=== PATIENT | female | born 1970 | race Caucasian/White ===

== ENCOUNTER 2018-05-20 07:49 | Emergency (ER) | payer MEDICAID ==
[2018-05-20] MEDS ORDERED: Ketorolac 60 MG/2 ML SDV IM ONE (08:16)
--- NOTE | 2018-05-20 08:23 | EDM.PDOC ---
ED HPI GENERAL MEDICAL PROBLEM - General Chief Complaint: Lower Extremity Injury/Pain Stated Complaint: SWOLLEN AND PAINFUL LEFT FOOT Time Seen by Provider: 05/20/18 08:05 - History of Present Illness INITIAL COMMENTS - FREE TEXT/NARRATIVE: HISTORY AND PHYSICAL: History of present illness: The patient is a 48-year-old female with a history of a bilateral tubal ligation presents with complaints of pain to her anterior ankle and dorsal aspect of her proximal foot that started last night after she twisted it going down the stairs to her laundry. She said that she rolled it and she fell to the ground but she did not pass out or blackout and she has no head neck or back pain. She said initially there was some pain there but she thought it would just go away and she took one dose of ibuprofen last night. This morning she woke up and it's very painful to ambulate. She has no neurosensory changes in the foot and the toes are not tender nor is the proximal tib-fib knee thigh or hip. The patient says she is up-to-date on her tetanus shot. Patient noticed a small wound on the anterior aspect of her ankle but she is not concerned about that and is not tender in the soft tissue. Review of systems: As per history of present illness and below otherwise all systems reviewed and negative. Past medical history: As per history of present illness and as reviewed below otherwise noncontributory. Surgical history: As per history of present illness and as reviewed below otherwise noncontributory. Social history: No reported history of drug or alcohol abuse. Family history: As per history of present illness and as reviewed below otherwise noncontributory. Physical exam: General: Well-developed well-nourished female who is nontoxic and vital signs are noted by me HEENT: Atraumatic, normocephalic, there is no palpable scalp bony deformities or tenderness and there are no midline step-offs tenderness defects of the cervical spine negative for conjunctival pallor or scleral icterus, mucous membranes moist, throat clear, neck supple, nontender, trachea midline. Lungs: Clear to auscultation, breath sounds equal bilaterally, chest nontender. Heart: S1S2, regular rate and rhythm no overt murmurs Abdomen: Soft, nondistended, nontender. NABS Pelvis: Stable nontender. No lateral hip tenderness on the left Genitourinary: Deferred. Rectal: Deferred. Extremities: Atraumatic full range of motion of all extremities with the exception of the left ankle and foot. At the dorsal aspect of the anterior soft tissue near the junction of the ankle and foot there is a quarter-sized scab- like area seen which has no surrounding erythema and there is no drainage or tenderness. That entire area has diffuse ill-defined soft tissue swelling extending into the proximal aspect of the dorsal foot. There is no discrete medial or lateral ankle tenderness no metatarsal tenderness or toe tenderness or defects and no proximal tib-fib knee or hip tenderness or defects. The legs are, negative for cords or calf pain. Neurovascular unremarkable. The patient indicates the area of the dorsal and slightly lateral foot in the proximal aspect as the site of pain. Pulses are intact and temperature and Refill are normal. Neuro: Awake, alert, oriented. Cranial nerves II through XII unremarkable. Cerebellum unremarkable. Motor and sensory unremarkable throughout. Exam nonfocal. Back: There are no midline step-offs tenderness defects of the thoracic or lumbar spine and no posterior rib or pelvis tenderness. Diagnostics: X-ray left ankle and foot Therapeutics: Toradol She defers wound care cam boot and crutches Impression: Left ankle/foot injury, sprain Definitive disposition and diagnosis as appropriate pending reevaluation and review of above. Left Ankle Pain Score (Numeric/FACES): 8 - Related Data Allergies Allergy/AdvReac Type Severity Reaction Status Date / Time No Known Allergies Allergy Verified 05/20/18 08:10 Home Meds: Home Meds ALPRAZolam [Xanax] 0.5 mg PRN 05/20/18 [History] QUEtiapine Fumarate [Seroquel] 50 mg PRN 05/20/18 [History] Review of Systems - Review of Systems Review Of Systems: ROS reveals no pertinent complaints other than HPI. ED EXAM, GENERAL - Physical Exam Exam: See Below (See dictation) Course - Vital Signs Last Recorded V/S: Last Vital Signs Temp 36.0 C 05/20/18 08:05 Pulse 75 05/20/18 08:05 Resp 18 05/20/18 08:05 BP 125/65 05/20/18 08:05 Pulse Ox 97 05/20/18 08:05 - Orders/Labs/Meds Orders: Active Orders 24 hr Category Date Time Status DME for Discharge [COMM] Stat Oth 05/20/18 09:19 Ordered Meds: Medications Discontinued Medications Generic Name Dose Route Start Last Admin Trade Name Wade PRN Reason Stop Dose Admin Ketorolac Tromethamine 60 mg 05/20/18 08:16 05/20/18 08:25 Toradol IM 05/20/18 08:17 60 mg ONETIME ONE Administration Departure - Departure Time of Disposition: 09:19 Disposition: Home, Self-Care 01 Condition: Good Clinical Impression: Injury of left foot Qualifiers: Encounter type: initial encounter Qualified Code(s): S99.922A - Unspecified injury of left foot, initial encounter Left ankle injury Qualifiers: Encounter type: initial encounter Qualified Code(s): S99.912A - Unspecified injury of left ankle, initial encounter - Discharge Information Referrals: PCP,None [Primary Care Provider] - Forms: ED Department Discharge Additional Instructions: The following information is given to patients seen in the emergency department who are being discharged to home. This information is to outline your options for follow-up care. We provide all patients seen in our emergency department with a follow-up referral. The need for follow-up, as well as the timing and circumstances, are variable depending upon the specifics of your emergency department visit. If you don't have a primary care physician on staff, we will provide you with a referral. We always advise you to contact your personal physician following an emergency department visit to inform them of the circumstance of the visit and for follow-up with them and/or the need for any referrals to a consulting specialist. The emergency department will also refer you to a specialist when appropriate. This referral assures that you have the opportunity for followup care with a specialist. All of these measure are taken in an effort to provide you with optimal care, which includes your followup. Under all circumstances we always encourage you to contact your private physician who remains a resource for coordinating your care. When calling for followup care, please make the office aware that this follow-up is from your recent emergency room visit. If for any reason you are refused follow-up, please contact the emergency department at and ask to speak to the emergency department charge nurse. [facility]--Orthopedic clinic Professional [address] [address] Ice and elevate the area as much as possible and wear the boot you have been given and try not to weight-bear and use crutches until you are followed up in the clinic. Please use [id number] ibuprofen or Tylenol for pain. Please call and schedule a follow-up appointment in our clinic as we discussed using resources given to above and return to ER as needed and as discussed. You may use a stronger medications you have been prescribed and take only at home. - My Orders Last 24 Hours: My Active Orders 05/20/18 09:19 DME for Discharge [COMM] Stat - Assessment/Plan Last 24 Hours: My Active Orders 05/20/18 09:19 DME for Discharge [COMM] Stat
--- NOTE | 2018-05-20 09:16 | CR ---
EXAMINATION: Left foot and left ankle HISTORY: Trauma COMPARISON: None TECHNIQUE: 3 views of the left foot and 3 views of left ankle FINDINGS: There is no acute osseous abnormality, dislocation, or fracture. Bone mineralization and alan int spaces are preserved. Mild degenerative changes noted within the midfoot. Ankle mortise and talar dome are preserved. No focal soft tissue swelling. IMPRESSION: No acute osseous abnormality identified.
== END 2018-05-20 09:30 | disposition home or self-care (01) ==
LOC: MW.ED 07:49
DX: S93.402A Sprain of unspecified ligament of left ankle, initial encounter (principal); S93.602A Unspecified sprain of left foot, initial encounter; W10.9XXA Fall (on) (from) unspecified stairs and steps, initial encounter
CPT/HCPCS: 73610; 73630; 96372; 99283; J1885

== ENCOUNTER 2018-12-15 15:26 | Emergency (ER) | payer MEDICAID ==
[2018-12-15] MEDS ORDERED: Ketorolac 60 MG/2 ML SDV IM ONE (15:50)
--- NOTE | 2018-12-15 15:51 | EDM.PDOC ---
<Adeline Lawrence - Last Filed: 12/15/18 18:05> ED HPI GENERAL MEDICAL PROBLEM - General Chief Complaint: Back Pain or Injury Stated Complaint: BACK PAIN Time Seen by Provider: 12/15/18 15:36 - History of Present Illness INITIAL COMMENTS - FREE TEXT/NARRATIVE: Plan: 1. Take medications as prescribed 2. Follow-up with your primary care provider as discussed. 3. Return to the ED as needed as discussed. - Related Data Allergies Allergy/AdvReac Type Severity Reaction Status Date / Time No Known Allergies Allergy Verified 12/15/18 15:40 Home Meds: Home Meds ALPRAZolam [Xanax] 0.5 mg PO ASDIRECTED PRN 05/20/18 [History] Sertraline [Zoloft] 12/15/18 [History] Course - Vital Signs Last Recorded V/S: Last Vital Signs Temp 98.1 F 12/15/18 15:36 Pulse 83 12/15/18 18:20 Resp 16 12/15/18 18:20 BP 119/81 12/15/18 18:20 Pulse Ox 96 12/15/18 18:20 - Orders/Labs/Meds Labs: Laboratory Tests 12/15/18 Range/Units 17:37 Urine Color YELLOW Urine Appearance CLEAR Urine pH 5.5 (5.0-8.0) Ur Specific Union 1.020 (1.001-1.035) Urine Protein NEGATIVE (NEGATIVE) mg/dL Urine Glucose (UA) NEGATIVE (NEGATIVE) mg/dL Urine Ketones NEGATIVE (NEGATIVE) mg/dL Urine Occult Blood NEGATIVE (NEGATIVE) Urine Nitrite NEGATIVE (NEGATIVE) Urine Bilirubin NEGATIVE (NEGATIVE) Urine Urobilinogen 0.2 (<2.0) EU/dL Ur Leukocyte Esterase NEGATIVE (NEGATIVE) Meds: Medications Discontinued Medications Generic Name Dose Route Start Last Admin Trade Name Freq PRN Reason Stop Dose Admin Hydrocodone Bitart/Acetaminophen 1 tab 12/15/18 17:47 12/15/18 17:51 Orient 325-5 Mg PO 12/15/18 17:48 1 tab ONETIME ONE Administration Ketorolac Tromethamine 60 mg 12/15/18 15:50 12/15/18 16:21 Toradol IM 12/15/18 15:51 60 mg ONETIME ONE Administration Morphine Sulfate 4 mg 12/15/18 17:30 12/15/18 17:52 Morphine PO 12/15/18 17:31 Not Given ONETIME ONE Orphenadrine Citrate 60 mg 12/15/18 15:50 12/15/18 16:21 Norflex IM 12/15/18 15:51 60 mg NOW STA Administration Departure - Departure Time of Disposition: 18:05 Disposition: Home, Self-Care 01 Clinical Impression: Low back pain Qualifiers: Chronicity: acute Back pain laterality: left Sciatica presence: with sciatica Sciatica laterality: sciatica of left side Qualified Code(s): M54.42 - Lumbago with sciatica, left side - Discharge Information Instructions: Back Pain, Adult, Back Pain, Adult, [id number] Referrals: PCP,None [Primary Care Provider] - Forms: ED Department Discharge Additional Instructions: The following information is given to patients seen in the emergency department who are being discharged to home. This information is to outline your options for follow-up care. We provide all patients seen in our emergency department with a follow-up referral. The need for follow-up, as well as the timing and circumstances, are variable depending upon the specifics of your emergency department visit. If you don't have a primary care physician on staff, we will provide you with a referral. We always advise you to contact your personal physician following an emergency department visit to inform them of the circumstance of the visit and for follow-up with them and/or the need for any referrals to a consulting specialist. The emergency department will also refer you to a specialist when appropriate. This referral assures that you have the opportunity for follow-up care with a specialist. All of these measure are taken in an effort to provide you with optimal care, which includes your follow-up. Under all circumstances we always encourage you to contact your private physician who remains a resource for coordinating your care. When calling for follow-up care, please make the office aware that this follow-up is from your recent emergency room visit. If for any reason you are refused follow-up, please contact the [facility] Emergency Department at and asked to speak to the emergency department charge nurse. [facility] [address] [place] [id number] [facility] [address] [place] [address] 1. Take medications as prescribed 2. Follow-up with your primary care provider as discussed. 3. Return to the ED as needed as discussed. <Phylicia Ch E - Last Filed: 12/16/18 14:04> ED HPI GENERAL MEDICAL PROBLEM - General Source of Information: Reports: Patient History Limitations: Reports: No Limitations - History of Present Illness INITIAL COMMENTS - FREE TEXT/NARRATIVE: HISTORY AND PHYSICAL: History of present illness: Patient is a 48-year-old female presents to the ED today with concerns for low back pain that radiates down the left leg. Patient rates her pain a 10 out of 10 and states that she has never had back pain hurt this bad. She denies injury to the area and states it is progressively gotten worse over the past 2 weeks. Patient states the pain is more left-sided abdominal low back and she can feel it on the outside of her left leg. She describes the pain as shooting and numb. I saddle anesthesia, loss of bowel or bladder function. Patient denies fever, chills, chest pain, shortness of breath, or cough. Denies headache, neck stiff ness, change in vision, syncope, or near syncope. She denies nausea, vomiting, abdominal pain, diarrhea, constipation, or dysuria. Has not noted any blood in urine or stool. Patient has been eating and drinking appropriately. Review of systems: As per history of present illness and below otherwise all systems reviewed and negative. Past medical history: As per history of present illness and as reviewed below otherwise noncontributory. Surgical history: As per history of present illness and as reviewed below otherwise noncontributory. Social history: See social history for further information Family history: As per history of present illness and as reviewed below otherwise noncontributory. Physical exam: General: Patient is alert, oriented, and in no acute distress. She is laying comfortably on exam table. HEENT: Atraumatic, normocephalic, pupils equal and reactive bilaterally, negative for conjunctival pallor or scleral icterus, mucous membranes moist, TMs normal bilaterally, throat clear, neck supple, nontender, trachea midline. No drooling or trismus noted. No meningeal signs. No hot potato voice noted. Lungs: Clear to auscultation, breath sounds equal bilaterally, chest nontender. Heart: S1S2, regular rate and rhythm without overt murmur Abdomen: Soft, nondistended, nontender. Negative for masses or hepatosplenomegaly. Negative for costovertebral tenderness. Pelvis: Stable nontender. Genitourinary: Deferred. Rectal: Deferred. Skin: Intact, warm, dry. No lesions or rashes noted. Extremities/musculoskeletal: There are no step-offs or obvious deformities of the spine. Patient does have moderate to severe pain with range of motion of the lumbar spine. She does have pain to palpation of the generalized lumbar spine and surrounding musculature. Dorsalis pedis and posterior tibial pulses are grossly intact bilaterally. Patient has full range of motion of hips knees and ankles and toes bilaterally. No edema noted. Atraumatic, negative for cords or calf pain. Neurovascular unremarkable. Neuro: Awake, alert, oriented. Cranial nerves II through XII unremarkable. Cerebellum unremarkable. Motor and sensory unremarkable throughout. Exam nonfocal. Notes: ALEXEI Casanova has assumed care of this patient will follow remaining diagnostics and disposition. Diagnostics: Lumbar CT Therapeutics: Toradol, Norflex Impression: Low back pain, unspecified Definitive disposition and diagnosis as appropriate pending reevaluation and review of above. 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: Reports: Psychiatric History: Reports: Anxiety, PTSD - Infectious Disease History Infectious Disease History: Reports: Chicken Pox - Past Surgical History HEENT Surgical History: Reports: Naso-Sinus Surgery Female Surgical History: Reports: Section, Tubal Ligation Social & Family History - Family History Family Medical History: Noncontributory - Tobacco Use Smoking Status *Q: Current Every Day Smoker Years of Tobacco use: 30 Packs/Tins Daily: 0.2 - Recreational Drug Use Recreational Drug Use: No ED ROS GENERAL - Review of Systems Review Of Systems: ROS reveals no pertinent complaints other than HPI. ED EXAM,LOWER BACK PAIN/INJURY - Physical Exam Exam: See Below (see dictation) Course - Orders/Labs/Meds Labs: Laboratory Tests 12/15/18 Range/Units 17:37 Urine Color YELLOW Urine Appearance CLEAR Urine pH 5.5 (5.0-8.0) Ur Specific Union 1.020 (1.001-1.035) Urine Protein NEGATIVE (NEGATIVE) mg/dL Urine Glucose (UA) NEGATIVE (NEGATIVE) mg/dL Urine Ketones NEGATIVE (NEGATIVE) mg/dL Urine Occult Blood NEGATIVE (NEGATIVE) Urine Nitrite NEGATIVE (NEGATIVE) Urine Bilirubin NEGATIVE (NEGATIVE) Urine Urobilinogen 0.2 (<2.0) EU/dL Ur Leukocyte Esterase NEGATIVE (NEGATIVE)
[2018-12-15] MEDS ORDERED: Morphine 4 MG/ML Syringe PO ONE (17:30)
--- NOTE | 2018-12-15 17:32 | CT ---
INDICATION: Back pain TECHNIQUE: CT lumbar spine without contrast. COMPARISON: None available FINDINGS: The lumbar spine alignment is within normal limits. The vertebral body heights are preserved without a compression deformity. The facets are anatomically aligned. There is no evidence of an acute lumbar spine fracture. There are mild degenerative changes in the lower lumbar spine facet joints. There is a small disk bulge/broad-based protrusion at L5-S1 with a small osteophyte formation off of the superior aspect of the S1 segment. There are small sacral Tarlov cysts. There is a partially imaged ovoid low-attenuation area/structure in the posteromedial aspect of the left piriformis muscle, seen on images 280 - 289 of series 201, which could be related to the left S3 nerve. There is reactive sclerosis adjacent to the anterior aspect of the sacroiliac joints. IMPRESSION: No evidence of an acute lumbar spine fracture. Mild degenerative changes in the lower lumbar spine. A partially imaged ovoid low-attenuation area/structure at the posteromedial aspect of the left piriformis muscle, which could be related to the left S3 nerve. Recommend followup evaluation with MRI of the sacrum and pelvis. Dictated by Wilmer Sal MD @ 12/15/2018 5:29:58 PM Please note that all CT scans at this facility use dose modulation, iterative reconstruction, and/or weight-based dosing when appropriate to reduce radiation dose to as low as reasonably achievable. Dictated by: Wilmer Sal MD @ 12/15/2018 17:31:19 (Electronically Signed)
[2018-12-15] MEDS ORDERED: Acetaminophen/HYDROcodone 325-5 MG Tab PO ONE (17:47)
== END 2018-12-15 18:19 | disposition home or self-care (01) ==
LOC: MW.ED 15:26
DX: M54.42 Lumbago with sciatica, left side (principal); F17.210 Nicotine dependence, cigarettes, uncomplicated
CPT/HCPCS: 72131; 81003; 96372; 99284; A9270; J1885; J2360

== ENCOUNTER → 2019-07-26 | Day surgery (SDC) | payer BC ==
[~2019-07-26] MED LIST: Lactated Ringers 1,000 ML IV SCH
[2019-07-26 15:54] LABS: BLOOD UREA NITROGEN,BUN 10 mg/dL (7.0-18.0); CARBON DIOXIDE,CO2 25.7 mmol/L (21.0-32.0); CHLORIDE,CL 106 mmol/L (98-107); GLUCOSE RANDOM 97 mg/dL (74-106); POTASSIUM,K 4.2 mmol/L (3.5-5.1); SODIUM,NA 144 mmol/L (136-145)
== END ==
LOC: MW.SDS 14:36
PROVIDERS: ATTEND Obstetrics & Gynecology
DX: R32 Unspecified urinary incontinence (principal)
CPT/HCPCS: 36415; 80053; 80074; 82607; 82728; 82746; 83550; 85027; 85384; 85610; 85730; 86850; 86900; 86901

== ENCOUNTER 2020-02-24 12:12 | Day surgery (SDC) | payer BC ==
[2020-02-24] MEDS ORDERED: Betamethasone Acetate/Betamethasone Sod Phosphate 30 MG/5 ML MDV EPIDUR ONE (13:00)
[2020-02-24] MEDS ORDERED: Lidocaine 2% 5 ML SDV INJECT ONE (13:00)
[2020-02-24] MEDS ORDERED: Iopamidol 200-M 10 ML vial ITHECAL ONE (13:00)
[2020-02-24] MEDS ORDERED: Ropivacaine 0.5% 5 MG/ML 30 ML SDV INJECT ONE (13:00)
--- NOTE | 2020-02-24 15:11 | OR ---
SURGEON: Sandy Johnson D.O. DATE OF PROCEDURE: 02/24/2020 PREOPERATIVE DIAGNOSIS: Left sacroiliac joint arthropathy. POSTOPERATIVE DIAGNOSIS: Left sacroiliac joint arthropathy. PROCEDURES PERFORMED: 1. Left sacroiliac joint injection. 2. Fluoroscopic guidance for needle placement. 3. Local with oral Valium for sedation. OR STAFF PRESENT: 1. Candace Carter RN. 2. Jennifer Srinivasan RN. 3. RT Mari. WOUND CLASS: I. SCREENING QUESTIONS: The patient answered "No" to all the followin. Are you allergic to iodine, Betadine or latex? 2. Do you have a bleeding disorder? 3. Do you have any joint replacements, heart valve replacements or a pacemaker? 4. Are you on any anti-inflammatories or blood thinners? 5. Do you have any current local or systemic infections? MEDICAL NECESSITY: This is a patient with a history of severe chronic low back pain and sacroiliac joint irritation with pain over the sacral sulcus and the buttocks region who comes in for the above diagnostic and therapeutic procedure. Please see medical necessity note attached. This procedure is being done in accordance with guidelines as written by the [employer] (JARON). DESCRIPTION OF PROCEDURE: The patient had the procedure thoroughly explained including all possible risks, benefits and alternatives. Consent was signed in my clinic indicating understanding and willingness to proceed. The patient presented to the outpatient Surgery Center and was escorted to the dressing room to disrobe and change into a hospital gown. Preoperative vital signs were taken and stable. The patient reported that Valium was taken prior to the procedure. The patient was brought to the procedure room and placed in the prone position on the procedure room table. A pillow was placed under the hips in order to flatten the lumbar lordosis. The back was prepped with ChloraPrep and sterilely draped. All personnel in the operating room were dressed in appropriate attire including surgical scrubs, head and shoe covers. This was to ensure sterility while in the treatment room. During the time fluoroscopy was in use all personnel in the operating room wore lead marquez with thyroid collars. Sterile technique was used during the procedure. The patient was awake and conversant throughout the procedure. The fluoroscope was positioned to provide an oblique view of the sacroiliac joint. There was no evidence of infection at the site of needle insertion. The skin was anesthetized with 2% Lidocaine with a sterile 27-gauge 1.5 inch needle. Then under fluoroscopy a 22-gauge 3.5 inch spinal needle was placed within the sacroiliac joint in the lower one-third of the joint. IsoVue-200 contrast dye was injected under live fluoroscopy and no intravascular flow pattern was observed. After negative aspiration of heme, the following solution was injected: 0.5% Ropivacaine, Celestone and 2% Lidocaine. The patient tolerated the procedure well and vital signs were stable during and after the procedure. The staff escorted the patient to the recovery area and the patient was released to home in stable condition after a brief stay in the recovery room monitored by the nurse. The patient was given both oral and written discharge and follow up instructions. Recommended follow up in two weeks. The patient is able to contact the office if there are any additional problems or questions in the meantime. The patient was given discharge instruction and verbalizes understanding including understanding of those signs and symptoms that would require emergency care. PREOPERATIVE PAIN: 8/10. POSTOPERATIVE PAIN: 2/10. FOLLOWUP: In the Pain Clinic in 3 weeks. REYNALDO / SLY /[id number]
== END 2020-02-24 14:55 | disposition home or self-care (01) ==
LOC: MW.SDS 12:12
PROVIDERS: ATTEND Anesthesiology
DX: M46.1 Sacroiliitis, not elsewhere classified (principal); M51.16 Intervertebral disc disorders with radiculopathy, lumbar region; M47.26 Other spondylosis with radiculopathy, lumbar region; M79.18 Myalgia, other site; F41.8 Other specified anxiety disorders; J43.9 Emphysema, unspecified; E66.9 Obesity, unspecified; G47.00 Insomnia, unspecified; F17.210 Nicotine dependence, cigarettes, uncomplicated; Z79.899 Other long term (current) drug therapy; Z68.36 Body mass index [BMI] 36.0-36.9, adult
CPT/HCPCS: G0260

== ENCOUNTER 2020-03-28 12:05 | Day surgery (SDC) | payer BC, OTHER ==
[2020-03-28] MEDS ORDERED: Diazepam 5 MG Tab PO ONE (12:41)
[2020-03-28] MEDS ORDERED: Iopamidol 200-M 10 ML vial ITHECAL ONE (14:00)
[2020-03-28] MEDS ORDERED: Lidocaine 2% 5 ML SDV INJECT ONE (14:00)
[2020-03-28] MEDS ORDERED: Betamethasone Acetate/Betamethasone Sod Phosphate 30 MG/5 ML MDV EPIDUR ONE (14:00)
[2020-03-28] MEDS ORDERED: Ropivacaine 0.5% 5 MG/ML 30 ML SDV INJECT ONE (14:00)
--- NOTE | 2020-03-28 20:04 | OR ---
SURGEON: Sandy Johnson D.O. DATE OF PROCEDURE: 03/28/2020 OR STAFF PRESENT: 1. Phyllis Pisano RN. 2. MARY BETH Massey. 3. Rafal Nieto RT. WOUND CLASS: I. PREOPERATIVE DIAGNOSES: 1. Left sacroiliac joint arthropathy. 2. Left Tarlov cyst. 3. Left chronic low back pain. POSTOPERATIVE DIAGNOSES: 1. Left sacroiliac joint arthropathy. 2. Left Tarlov cyst. 3. Left chronic low back pain. PROCEDURES PERFORMED: 1. Left sacroiliac joint injection. 2. Fluoroscopic guidance for needle placement. 3. Local with oral Valium for sedation. SCREENING QUESTIONS: The patient answered "No" to all the followin. Are you allergic to iodine, Betadine or latex? 2. Do you have a bleeding disorder? 3. Do you have any joint replacements, heart valve replacements or a pacemaker? 4. Are you on any anti-inflammatories or blood thinners? 5. Do you have any current local or systemic infections? DESCRIPTION OF PROCEDURE: The patient had the procedure thoroughly explained including all possible risks, benefits and alternatives. Consent was signed in my clinic indicating understanding and willingness to proceed. The patient presented to the outpatient [facility] and was escorted to the dressing room to disrobe and change into a hospital gown. Preoperative vital signs were taken and stable. The patient reported that Valium was taken prior to the procedure. The patient was brought to the procedure room and placed in the prone position on the procedure room table. A pillow was placed under the hips in order to flatten the lumbar lordosis. The back was prepped with ChloraPrep and sterilely draped. All personnel in the operating room were dressed in appropriate attire including surgical scrubs, head and shoe covers. This was to ensure sterility while in the treatment room. During the time fluoroscopy was in use all personnel in the operating room wore lead marquez with thyroid collars. Sterile technique was used during the procedure. The patient was awake and conversant throughout the procedure. The fluoroscope was positioned to provide an oblique view of the sacroiliac joint. There was no evidence of infection at the site of needle insertion. The skin was anesthetized with 2% Lidocaine with a sterile 27-gauge 1.5 inch needle. Then under fluoroscopy a 22-gauge 3.5 inch spinal needle was placed within the sacroiliac joint in the lower one-third of the joint. IsoVue-200 contrast dye was injected under live fluoroscopy and no intravascular flow pattern was observed. After negative aspiration of heme, the following solution was injected: 0.5% Ropivacaine, Celestone and 2% Lidocaine. The patient tolerated the procedure well and vital signs were stable during and after the procedure. The staff escorted the patient to the recovery area and the patient was released to home in stable condition after a brief stay in the recovery room monitored by the nurse. The patient was given both oral and written discharge and follow up instructions. Recommended follow up in two weeks. The patient is able to contact the office if there are any additional problems or questions in the meantime. The patient was given discharge instruction and verbalizes understanding including understanding of those signs and symptoms that would require emergency care. PREOPERATIVE PAIN: 4-plus/10. POSTOPERATIVE PAIN: 0/10. FOLLOWUP: In the Pain Clinic in one month. REYNALDO / SLY /[id number] TOMER
== END 2020-03-28 14:50 | disposition home or self-care (01) ==
LOC: MW.SDS 12:05
PROVIDERS: ATTEND Anesthesiology
DX: G89.29 Other chronic pain (principal); M51.16 Intervertebral disc disorders with radiculopathy, lumbar region; M47.26 Other spondylosis with radiculopathy, lumbar region; M46.1 Sacroiliitis, not elsewhere classified; J43.9 Emphysema, unspecified; F41.8 Other specified anxiety disorders; G47.00 Insomnia, unspecified; E66.9 Obesity, unspecified; F17.210 Nicotine dependence, cigarettes, uncomplicated; Z79.899 Other long term (current) drug therapy; Z68.36 Body mass index [BMI] 36.0-36.9, adult
CPT/HCPCS: A9270-GY; J0702; J2001; J2795; Q9966

== ENCOUNTER 2020-07-06 11:32 | Day surgery (SDC) | payer BC ==
[2020-07-06] MEDS ORDERED: Lidocaine 2% 5 ML SDV INJECT ONE (13:30)
[2020-07-06] MEDS ORDERED: Ropivacaine 0.5% 5 MG/ML 30 ML SDV INJECT ONE (13:30)
[2020-07-06] MEDS ORDERED: Iopamidol 200-M 10 ML vial ITHECAL ONE (13:30)
[2020-07-06] MEDS ORDERED: Betamethasone Acetate/Betamethasone Sod Phosphate 30 MG/5 ML MDV EPIDUR ONE (13:30)
--- NOTE | 2020-07-07 08:32 | OR ---
SURGEON: Sandy Johnson D.O. DATE OF PROCEDURE: 07/06/2020 PRIMARY SURGEON: Sandy Johnson DO ASSISTANTS: OR staff present: 1. Phyllis Godoy RN. 2. Jennifer Bell RN. 3. RT Maye. 4. Rafal Buckley RN. WOUND CLASS: I. PREOPERATIVE DIAGNOSES: 1. Left sacroiliac joint dysfunction. 2. Chronic low back pain. 3. Lumbosacral degenerative disk disease, lumbosacral facet joint arthropathy. 4. Sacral Tarlov cyst. POSTOPERATIVE DIAGNOSES: 1. Left sacroiliac joint dysfunction. 2. Chronic low back pain. 3. Lumbosacral degenerative disk disease, lumbosacral facet joint arthropathy. 4. Sacral Tarlov cyst. PROCEDURES PERFORMED: 1. Left sacroiliac joint injection. 2. Fluoroscopic guidance for needle placement. 3. Local with oral Valium for sedation. SCREENING QUESTIONS: The patient answered "No" to all the followin. Are you allergic to iodine, Betadine or latex? 2. Do you have a bleeding disorder? 3. Do you have any joint replacements, heart valve replacements or a pacemaker? 4. Are you on any anti-inflammatories or blood thinners? 5. Do you have any current local or systemic infections? MEDICAL NECESSITY: This is a patient with a history of severe chronic low back pain and sacroiliac joint irritation with pain over the sacral sulcus and the buttocks region who comes in for the above diagnostic and therapeutic procedure. Please see medical necessity note attached. This procedure is being done in accordance with guidelines as written by the [employer] (JARON). DESCRIPTION OF PROCEDURE: The patient had the procedure thoroughly explained including all possible risks, benefits and alternatives. Consent was signed in my clinic indicating understanding and willingness to proceed. The patient presented to the outpatient Surgery Center and was escorted to the dressing room to disrobe and change into a hospital gown. Preoperative vital signs were taken and stable. The patient reported that Valium was taken prior to the procedure. The patient was brought to the procedure room and placed in the prone position on the procedure room table. A pillow was placed under the hips in order to flatten the lumbar lordosis. The back was prepped with ChloraPrep and sterilely draped. All personnel in the operating room were dressed in appropriate attire including surgical scrubs, head and shoe covers. This was to ensure sterility while in the treatment room. During the time fluoroscopy was in use all personnel in the operating room wore lead marquez with thyroid collars. Sterile technique was used during the procedure. The patient was awake and conversant throughout the procedure. The fluoroscope was positioned to provide an oblique view of the sacroiliac joint. There was no evidence of infection at the site of needle insertion. The skin was anesthetized with 2% Lidocaine with a sterile 27-gauge 1.5 inch needle. Then under fluoroscopy a 22-gauge 3.5 inch spinal needle was placed within the sacroiliac joint in the lower one-third of the joint. IsoVue-200 contrast dye was injected under live fluoroscopy and no intravascular flow pattern was observed. After negative aspiration of heme, the following solution was injected: 0.5% Ropivacaine, Celestone and 2% Lidocaine. The patient tolerated the procedure well and vital signs were stable during and after the procedure. The staff escorted the patient to the recovery area and the patient was released to home in stable condition after a brief stay in the recovery room monitored by the nurse. The patient was given both oral and written discharge and follow up instructions. Recommended follow up in two weeks. The patient is able to contact the office if there are any additional problems or questions in the meantime. The patient was given discharge instruction and verbalizes understanding including understanding of those signs and symptoms that would require emergency care. PREOPERATIVE PAIN: 7/10. POSTOPERATIVE PAIN: 3/10. FOLLOWUP: In the Pain Clinic in 3 weeks. HOGARMANDO / SLY /[id number]
== END 2020-07-06 13:29 ==
LOC: MW.SDS 11:32
PROVIDERS: ATTEND Anesthesiology
DX: G89.4 Chronic pain syndrome (principal); M53.3 Sacrococcygeal disorders, not elsewhere classified; M51.37 Other intervertebral disc degeneration, lumbosacral region; M47.817 Spondylosis without myelopathy or radiculopathy, lumbosacral region; M71.38 Other bursal cyst, other site; J43.9 Emphysema, unspecified; E78.5 Hyperlipidemia, unspecified; M51.36 Other intervertebral disc degeneration, lumbar region; F12.10 Cannabis abuse, uncomplicated; F17.210 Nicotine dependence, cigarettes, uncomplicated; E66.9 Obesity, unspecified; M79.2 Neuralgia and neuritis, unspecified; Z68.35 Body mass index [BMI] 35.0-35.9, adult; Z79.899 Other long term (current) drug therapy
CPT/HCPCS: 27096; J0702; J2001; J2795; Q9966

== ENCOUNTER 2020-08-17 09:27 | Emergency (ER) | payer SELFPAY ==
[2020-08-17] MEDS ORDERED: Sodium Chloride 0.9% 1,000 ML IV ONE (10:15)
[2020-08-17] MEDS ORDERED: Ondansetron 4 MG/2 ML SDV IVPUSH ONE ×2 (10:15→11:46)
[2020-08-17] MEDS ORDERED: Pantoprazole 80 MG in Sodium Chloride 0.9% 20 ML IVPUSH ONE (10:16)
[2020-08-17] MEDS ORDERED: Morphine 4 MG/ML Syringe IVPUSH ONE (10:17)
[2020-08-17 10:43] LABS: BLOOD UREA NITROGEN,BUN 15 mg/dL (7.0-18.0); CHLORIDE,CL 100 mmol/L (98-107); GLUCOSE RANDOM 127 mg/dL (74-106); LIPASE 146 U/L (73-393); POTASSIUM,K 3.4 mmol/L (3.5-5.1); SODIUM,NA 140 mmol/L (136-145)
--- NOTE | 2020-08-17 10:56 | EDM.PDOC ---
ED HPI GENERAL MEDICAL PROBLEM - General Chief Complaint: Gastrointestinal Problem Stated Complaint: NAUSEA Time Seen by Provider: 08/17/20 10:07 Source of Information: Reports: Patient History Limitations: Reports: No Limitations - History of Present Illness INITIAL COMMENTS - FREE TEXT/NARRATIVE: HISTORY AND PHYSICAL: History of present illness: Patient is a 50-year-old female who presents to the ED today with concern of epigastric abdominal pain and vomiting x4 to 5 days. Patient states the abdominal pain has been coming and going and is worse that she does eat. Patien t states that she has not been able to even drink water without wanting to vomit. Patient states that she has been "forcing herself to vomit "because it makes her discomfort feel better and she has constant nausea. Patient states that she has had her "gallbladder checked out "approximately 1 year ago and states that "it was fine ". Patient states she has had a tubal ligation and 2 prior cesareans but denies any other abdominal surgeries. Patient denies any health history. Denies recreational drug use/alcohol use. Patient denies fever, chills, chest pain, shortness of breath, or cough. Denies headache, neck stiff ness, change in vision, syncope, or near syncope. Denies diarrhea, constipation, or dysuria. Has not noted any blood in urine or stool. Review of systems: As per history of present illness and below otherwise all systems reviewed and negative. Past medical history: As per history of present illness and as reviewed below otherwise noncontributory. Surgical history: As per history of present illness and as reviewed below otherwise noncontributory. Social history: See social history for further information Family history: As per history of present illness and as reviewed below otherwise noncontributory. Physical exam: General: Patient is alert, oriented, and in no acute distress. Patient laying comfortably on exam table. While in triage with nursing staff, patient does have dry heaving episodes but does not have any on my exam. Vitals stable and reviewed by me. HEENT: Atraumatic, normocephalic, pupils equal and reactive bilaterally, negative for conjunctival pallor or scleral icterus, mucous membranes moist, TMs normal bilaterally, throat clear, neck supple, nontender, trachea midline. No drooling or trismus noted. No meningeal signs. No hot potato voice noted. Lungs: Clear to auscultation, breath sounds equal bilaterally, chest nontender. Heart: S1S2, regular rate and rhythm without overt murmur Abdomen: Soft, nondistended, nontender. Negative barkley sign. Negative rebound tenderness. Negative for masses or hepatosplenomegaly. Negative for costovertebral tenderness. Pelvis: Stable nontender. Genitourinary: Deferred. Rectal: Deferred. Skin: Intact, warm, dry. No lesions or rashes noted. Extremities: Atraumatic, negative for cords or calf pain. Neurovascular unremarkable. Neuro: Awake, alert, oriented. Cranial nerves II through XII unremarkable. Cerebellum unremarkable. Motor and sensory unremarkable throughout. Exam nonfocal. Notes: Patient does continue to have abdominal pain and vomiting after zofran and morphine. Patient does express that she did not initially tell us, but that she does use/smoke marijuana daily. Patients symptoms resolve with haldol and benadry and patient requesting to leave ED as she feels improved. Able to tolerate PO intake. Incendental findings of imaging discussed as well as importance for follow up with her PCP. Symptoms are prompt return to the ED thoroughly discussed with patient. Strict return precautions thoroughly discussed. Voices understanding and is agreeable to plan of care. Denies any further questions or concerns at this time. Diagnostics: EKG, CBC, CMP, UA, UDS, uhcg, Lipase, trop, Abd/Pelvic CT w cont, CXR (Patient declines leaving a urine sample) Therapeutics: NS, Zofran, Morphine, Protonix, Haldol, Benadryl Prescription: None Impression: Abdominal pain, unspecified Vomiting Transaminitis Plan: 1. Follow up with your primary care provider as discussed and for further evaluation and from incidental imaging findings as discussed. 2. You can alternate ibuprofen and Tylenol as directed for pain and discomfort. 3. Encourage small frequent sips of fluid to prevent dehydration. 4. Quit using marijuana as discussed. Return to the ED as needed and as discussed. Definitive disposition and diagnosis as appropriate pending reevaluation and review of above. abd Pain Score (Numeric/FACES): 10 - Related Data Allergies Allergy/AdvReac Type Severity Reaction Status Date / Time No Known Allergies Allergy Verified 08/17/20 09:52 Home Meds: Home Meds QUEtiapine Fumarate [Seroquel] 1 tab PO ASDIRECTED PRN 08/17/20 [History] Past Medical History HEENT History: Reports: Hard of Hearing, Other (See Below) Other HEENT History: wears glasses Gastrointestinal History: Reports: Other (See Below) Other Gastrointestinal History: frequent heartburn- takes TUMS Genitourinary History: Reports: Urinary Incontinence BRUISE TRIMMER History: Reports: Dysfunctional Uterine Bleeding, , Spontaneous Musculoskeletal History: Reports: Back Pain, Chronic Neurological History: Reports: Concussion, Other (See Below) Other Neuro History: has claustrophobia and motion sickness Psychiatric History: Reports: Anxiety, Depression Endocrine/Metabolic History: Reports: Obesity/BMI 30+ - Infectious Disease History Infectious Disease History: Reports: Chicken Pox - Past Surgical History HEENT Surgical History: Reports: Naso-Sinus Surgery Female Surgical History: Reports: Section, Tubal Ligation Social & Family History - Family History Family Medical History: No Pertinent Family History ED ROS GENERAL - Review of Systems Review Of Systems: Comprehensive ROS is negative, except as noted in HPI. ED EXAM, GENERAL - Physical Exam Exam: See Below (see dictation) Course - Vital Signs Last Recorded V/S: Last Vital Signs Temp 96.6 F L 08/17/20 09:40 Pulse 79 08/17/20 14:10 Resp 16 08/17/20 14:10 BP 106/51 L 08/17/20 14:10 Pulse Ox 96 08/17/20 14:10 - Orders/Labs/Meds Orders: Active Orders 24 hr Category Date Time Status CORONAVIRUS COVID-19 PCR PHL Stat Lab 08/17/20 12:30 Received DRUG SCREEN, URINE [URCHEM] Stat Lab 08/17/20 13:21 Ordered HCG QUALITATIVE,URINE [URCHEM] Stat Lab 08/17/20 10:15 Ordered UA RFX HERMINIA AND CULT IF INDIC [URIN] Stat Lab 08/17/20 10:15 Ordered Labs: Laboratory Tests 08/17/20 08/17/20 08/17/20 Range/Units 09:48 09:48 12:30 WBC 10.18 (4.0-11.0) K/uL RBC 5.12 (4.30-5.90) M/uL Hgb 16.0 (12.0-16.0) g/dL Hct 46.5 H (36.0-46.0) % MCV 90.8 (80.0-98.0) fL MCH 31.3 (27.0-32.0) pg MCHC 34.4 (31.0-37.0) g/dL RDW Std Deviation 41.3 (28.0-62.0) fl RDW Coeff of Jordi 12 (11.0-15.0) % Plt Count 217 (150-400) K/uL MPV 13.60 H (7.40-12.00) fL Neut % (Auto) 57.4 (48.0-80.0) % Lymph % (Auto) 31.5 (16.0-40.0) % Ramsey % (Auto) 7.9 (0.0-15.0) % Eos % (Auto) 2.5 (0.0-7.0) % Baso % (Auto) 0.7 (0.0-1.5) % Neut # (Auto) 5.9 H (1.4-5.7) K/uL Lymph # (Auto) 3.2 H (0.6-2.4) K/uL Ramsey # (Auto) 0.8 (0.0-0.8) K/uL Eos # (Auto) 0.3 (0.0-0.7) K/uL Baso # (Auto) 0.1 (0.0-0.1) K/uL Nucleated RBC % 0.0 /100WBC Nucleated RBCs # 0 K/uL Sodium 140 (136-145) mmol/L Potassium 3.4 L (3.5-5.1) mmol/L Chloride 100 (98-107) mmol/L Carbon Dioxide 27.0 (21.0-32.0) mmol/L BUN 15 (7.0-18.0) mg/dL Creatinine 1.0 (0.6-1.0) mg/dL Est Cr Clr Drug Dosing 66.18 mL/min Estimated GFR (MDRD) 58.9 ml/min Glucose 127 H (74-106) mg/dL Calcium 9.6 (8.5-10.1) mg/dL Total Bilirubin 1.1 H (0.2-1.0) mg/dL AST 55 H (15-37) IU/L ALT 88 H (14-63) IU/L Alkaline Phosphatase 107 (46-116) U/L Troponin I < 0.050 (0.000-0.056) ng/mL Total Protein 7.5 (6.4-8.2) g/dL Albumin 4.2 (3.4-5.0) g/dL Globulin 3.3 (2.6-4.0) g/dL Albumin/Globulin Ratio 1.3 (0.9-1.6) Lipase 146 (73-393) U/L SARS CoV-2 RNA Rapid LIN NEGATIVE (NEGATIVE) Meds: Medications Discontinued Medications Generic Name Dose Route Start Last Admin Trade Name Frenilo PRN Reason Stop Dose Admin Diphenhydramine HCl 25 mg 08/17/20 13:12 08/17/20 13:20 Benadryl IVPUSH 08/17/20 13:13 25 mg ONETIME ONE Administration Haloperidol Lactate 5 mg 08/17/20 13:13 08/17/20 13:20 Haldol IM 08/17/20 13:14 5 mg ONETIME ONE Administration Sodium Chloride 1,000 mls @ 999 mls/hr 08/17/20 10:15 08/17/20 10:38 Normal Saline IV 08/17/20 11:15 999 mls/hr BOLUS ONE Administration Pantoprazole Sodium 80 mg/ 20 mls @ 420 mls/hr 08/17/20 10:16 08/17/20 10:38 Sodium Chloride IVPUSH 08/17/20 10:18 420 mls/hr ONETIME ONE Administration Iopamidol 100 ml 08/17/20 11:32 08/17/20 11:33 Isovue Multipack-370 (76%) IVPUSH 08/17/20 11:33 100 ml ONETIME ONE Administration Ketorolac Tromethamine 30 mg 08/17/20 11:43 08/17/20 11:50 Toradol IVPUSH 08/17/20 11:44 30 mg ONETIME ONE Administration Morphine Sulfate 4 mg 08/17/20 10:17 08/17/20 10:39 Morphine IVPUSH 08/17/20 10:18 4 mg ONETIME ONE Administration Morphine Sulfate 2 mg 08/17/20 11:44 08/17/20 11:50 Morphine IVPUSH 08/17/20 11:45 2 mg ONETIME ONE Administration Ondansetron HCl 4 mg 08/17/20 10:15 08/17/20 10:38 Zofran IVPUSH 08/17/20 10:16 4 mg ONETIME ONE Administration Ondansetron HCl 4 mg 08/17/20 11:46 08/17/20 11:50 Zofran IVPUSH 08/17/20 11:47 4 mg ONETIME ONE Administration Departure - Departure Time of Disposition: 13:57 Disposition: Home, Self-Care 01 Clinical Impression: Transaminitis Abdominal pain Qualifiers: Abdominal location: epigastric Qualified Code(s): R10.13 - Epigastric pain Vomiting Qualifiers: Vomiting type: unspecified Vomiting Intractability: non-intractable Nausea presence: with nausea Qualified Code(s): R11.2 - Nausea with vomiting, unspecified - Discharge Information Instructions: Cyclic Vomiting Syndrome, Adult Referrals: PCP,None [Primary Care Provider] - Forms: ED Department Discharge Additional Instructions: The following information is given to patients seen in the emergency department who are being discharged to home. This information is to outline your options for follow-up care. We provide all patients seen in our emergency department with a follow-up referral. The need for follow-up, as well as the timing and circumstances, are variable depending upon the specifics of your emergency department visit. If you don't have a primary care physician on staff, we will provide you with a referral. We always advise you to contact your personal physician following an emergency department visit to inform them of the circumstance of the visit and for follow-up with them and/or the need for any referrals to a consulting specialist. The emergency department will also refer you to a specialist when appropriate. This referral assures that you have the opportunity for follow-up care with a specialist. All of these measure are taken in an effort to provide you with optimal care, which includes your follow-up. Under all circumstances we always encourage you to contact your private physician who remains a resource for coordinating your care. When calling for follow-up care, please make the office aware that this follow-up is from your recent emergency room visit. If for any reason you are refused follow-up, please contact the [facility] Emergency Department at and asked to speak to the emergency department charge nurse. [facility] [address] [place] [id number] [facility] [address] [place] [address] 1. Follow up with your primary care provider as discussed and for further evaluation and from incidental imaging findings as discussed. 2. You can alternate ibuprofen and Tylenol as directed for pain and discomfort. 3. Encourage small frequent sips of fluid to prevent dehydration. 4. Quit using marijuana as discussed. Return to the ED as needed and as discussed. Sepsis Event Note (ED) - Evaluation Sepsis Screening Result: No Definite Risk - Focused Exam Vital Signs: Vital Signs Temp Pulse Resp BP Pulse Ox 08/17/20 14:10 79 16 106/51 L 96 08/17/20 13:24 84 16 127/69 97 08/17/20 10:43 70 16 141/96 H 97 08/17/20 09:40 96.6 F L 80 20 123/92 H 97 - My Orders Last 24 Hours: My Active Orders 08/17/20 10:15 HCG QUALITATIVE,URINE [URCHEM] Stat UA RFX HERMINIA AND CULT IF INDIC [URIN] Stat 08/17/20 12:30 CORONAVIRUS COVID-19 PCR PHL Stat 08/17/20 13:21 DRUG SCREEN, URINE [URCHEM] Stat - Assessment/Plan Last 24 Hours: My Active Orders 08/17/20 10:15 HCG QUALITATIVE,URINE [URCHEM] Stat UA RFX HERMINIA AND CULT IF INDIC [URIN] Stat 08/17/20 12:30 CORONAVIRUS COVID-19 PCR PHL Stat 08/17/20 13:21 DRUG SCREEN, URINE [URCHEM] Stat
[2020-08-17] MEDS ORDERED: Iopamidol 755 MG/ML 500 ML Multipack Bottle IVPUSH ONE (11:32)
[2020-08-17] MEDS ORDERED: Ketorolac 30 MG/ML SDV IVPUSH ONE (11:43)
[2020-08-17] MEDS ORDERED: Morphine 2 MG/ML SYRINGE IVPUSH ONE (11:44)
--- NOTE | 2020-08-17 11:49 | CR ---
HISTORY: Epigastric pain. TECHNIQUE: One view of the chest. COMPARISON: 08/26/2019. FINDINGS: Cardiac size and pulmonary vasculature are within normal limits. There is no acute lung infiltrate or pulmonary edema. No pneumothorax or pleural effusion. No acute bony abnormality. IMPRESSION: No acute disease. Dictated by Smooth Lambert MD @ 08/17/2020 11:47:34 AM Dictated by: Smooth Lambert MD @ 08/17/2020 11:47:39 (Electronically Signed)
--- NOTE | 2020-08-17 12:09 | CT ---
Indication: Upper abdominal pain Technique: Contrast enhanced CT abdomen and pelvis with 100 mL Isovue 370 Comparison: No comparison studies are available. Findings: Heart size is normal. Lung bases are clear. Liver spleen pancreas gallbladder adrenal glands are unremarkable. Small hiatal hernia. Normal caliber abdominal aorta. Symmetric enhancement of both kidneys. Too small to characterize low-density lesion left kidney. There is a round low-density lesion in the right mid kidney incompletely assessed. No hydronephrosis. Normal appendix. Minimal diverticulosis. Bowel is unremarkable. Urinary bladder is unremarkable. Cystic structure extending into the left S3 neural foramen probably reflects no suspicious bony lesions. A perineural cyst. Urinary bladder is unremarkable. Impression: 1. No acute findings in the abdomen or pelvis. Small hiatal hernia. 2. Low-density lesion right mid kidney incompletely assessed consider ultrasound initially for further evaluation. Please note that all CT scans at this facility use dose modulation, iterative reconstruction, and/or weight-based dosing when appropriate to reduce radiation dose to as low as reasonably achievable. Dictated by Jessica Reyes MD @ Aug 17 2020 11:47AM Signed by Dr. Jessica Reyes @ Aug 17 2020 12:07PM
[2020-08-17] MEDS ORDERED: diphenhydrAMINE 50 MG/ML SDV IVPUSH ONE (13:12)
[2020-08-17] MEDS ORDERED: Haloperidol Lactate 5 MG/ML SDV IM ONE (13:13)
== END 2020-08-17 14:10 | disposition home or self-care (01) ==
LOC: MW.ED 09:27
DX: R10.13 Epigastric pain (principal); R11.2 Nausea with vomiting, unspecified; R74.01 Elevation of levels of liver transaminase levels; E66.9 Obesity, unspecified; Z68.36 Body mass index [BMI] 36.0-36.9, adult; Z20.828 Contact with and (suspected) exposure to other viral communicable diseases
CPT/HCPCS: 71045; 74177; 80053; 83690; 84484; 85025; 87635; 93005; 96372; 96374; 96375; 96376; 99284; C9113; J1200; J1630; J1885; J2270; J2405; J7030; Q9967; 93010; U0002

== ENCOUNTER 2020-08-20 19:27 | Emergency (ER) | payer SELFPAY ==
[2020-08-20] MEDS ORDERED: Sodium Chloride 0.9% 1,000 ML IV ONE (19:43)
[2020-08-20] MEDS ORDERED: Ondansetron 4 MG/2 ML SDV IVPUSH ONE (19:43)
--- NOTE | 2020-08-20 19:51 | EDM.PDOC ---
ED HPI GENERAL MEDICAL PROBLEM - General Chief Complaint: Gastrointestinal Problem Stated Complaint: STOMACH PAINS Time Seen by Provider: 08/20/20 19:36 Source of Information: Reports: Patient History Limitations: Reports: No Limitations - History of Present Illness INITIAL COMMENTS - FREE TEXT/NARRATIVE: Presents with a complaint of vomiting and upper abdominal pain. Patient uses marijuana on a regular daily basis for her anxiety. She was seen in this ED on 08/17/2020 with a complaint of epigastric pain and vomiting for 4 to 5 days. On that occasion she indicated she had been forcing herself to vomit because it made her discomfort feel better. She had a CT of the abdomen and pelvis which indicated no acute findings. Chemistries were essentially normal including tr oponin, amylase and lipase. The patient also indicated that she had her gallbladder checked out approximately 1 year ago and by her report "it was fine". Today, the patient states she has not been using marijuana for the last couple of days but today has been nauseated with continuous vomiting and upper abdominal pain along with hunger pains because she has not been eating. Aside from obesity and anxiety she denies any chronic medical problems and takes no medications. Denies diarrhea, constipation, last BM today reported normal. Denies dysuria, , vaginal symptoms. Middle Abdomen Pain Score (Numeric/FACES): 10 - Related Data Allergies Allergy/AdvReac Type Severity Reaction Status Date / Time No Known Allergies Allergy Verified 08/20/20 19:41 Home Meds: Home Meds Ondansetron [Zofran ODT] 1 tab PO Q6H PRN #10 tab.dis 08/20/20 [Rx] Ondansetron [Zofran ODT] 1 tab PO Q6H PRN #10 tab.dis 08/20/20 [Rx] Past Medical History HEENT History: Reports: Hard of Hearing, Other (See Below) Other HEENT History: wears glasses Gastrointestinal History: Reports: Other (See Below) Other Gastrointestinal History: frequent heartburn- takes TUMS Genitourinary History: Reports: Urinary Incontinence [employer] 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: Reports: Dysfunctional Uterine Bleeding, , Spontaneous Musculoskeletal History: Reports: Back Pain, Chronic Neurological History: Reports: Concussion, Other (See Below) Other Neuro History: has claustrophobia and motion sickness Psychiatric History: Reports: Anxiety, Depression Endocrine/Metabolic History: Reports: Obesity/BMI 30+ - Infectious Disease History Infectious Disease History: Reports: Chicken Pox - Past Surgical History HEENT Surgical History: Reports: Naso-Sinus Surgery Female Surgical History: Reports: Section, Tubal Ligation Social & Family History - Family History Family Medical History: No Pertinent Family History ED ROS GENERAL - Review of Systems Review Of Systems: Comprehensive ROS is negative, except as noted in HPI. ED EXAM, GI/ABD - Physical Exam Exam: See Below Exam Limited By: No Limitations General Appearance: Alert, No Apparent Distress Ears: Normal External Exam Nose: Normal Inspection Throat/Mouth: Normal Inspection, Normal Lips Head: Atraumatic, Normocephalic Neck: Normal Inspection, Supple, Non-Tender Respiratory/Chest: No Respiratory Distress, Lungs Clear, Normal Breath Sounds Cardiovascular: Normal Peripheral Pulses, Regular Rate, Rhythm GI/Abdominal Exam: Soft, No Distention, Tender (epigastric) Back Exam: Normal Inspection Extremities: Normal Inspection Neurological: Alert, Oriented Psychiatric: Anxious, Other (Jittery) Skin Exam: Warm, Dry, Intact, Normal Color, No Rash Lymphatic: No Adenopathy Course - Vital Signs Last Recorded V/S: Last Vital Signs Temp 36.3 C 08/20/20 19:38 Pulse 92 08/20/20 19:38 Resp 20 08/20/20 19:38 BP 133/82 08/20/20 19:38 Pulse Ox 96 08/20/20 19:38 - Orders/Labs/Meds Labs: Laboratory Tests 08/20/20 08/20/20 Range/Units 19:50 19:50 WBC 12.23 H (4.0-11.0) K/uL RBC 4.86 (4.30-5.90) M/uL Hgb 15.2 (12.0-16.0) g/dL Hct 44.5 (36.0-46.0) % MCV 91.6 (80.0-98.0) fL MCH 31.3 (27.0-32.0) pg MCHC 34.2 (31.0-37.0) g/dL RDW Std Deviation 41.9 (28.0-62.0) fl RDW Coeff of Jordi 13 (11.0-15.0) % Plt Count 214 (150-400) K/uL MPV 13.90 H (7.40-12.00) fL Neut % (Auto) 68.0 (48.0-80.0) % Lymph % (Auto) 24.0 (16.0-40.0) % [place] % (Auto) 5.2 (0.0-15.0) % Eos % (Auto) 2.2 (0.0-7.0) % Baso % (Auto) 0.6 (0.0-1.5) % Neut # (Auto) 8.3 H (1.4-5.7) K/uL Lymph # (Auto) 2.9 H (0.6-2.4) K/uL [place] # (Auto) 0.6 (0.0-0.8) K/uL Eos # (Auto) 0.3 (0.0-0.7) K/uL Baso # (Auto) 0.1 (0.0-0.1) K/uL Nucleated RBC % 0.0 /100WBC Nucleated RBCs # 0 K/uL Sodium 140 (136-145) mmol/L Potassium 3.8 (3.5-5.1) mmol/L Chloride 106 (98-107) mmol/L Carbon Dioxide 24.8 (21.0-32.0) mmol/L BUN 9 (7.0-18.0) mg/dL Creatinine 0.8 (0.6-1.0) mg/dL Est Cr Clr Drug Dosing 82.72 mL/min Estimated GFR (MDRD) > 60.0 ml/min Glucose 127 H (74-106) mg/dL Calcium 9.4 (8.5-10.1) mg/dL Total Bilirubin 0.5 (0.2-1.0) mg/dL AST 32 (15-37) IU/L ALT 82 H (14-63) IU/L Alkaline Phosphatase 110 (46-116) U/L Total Protein 7.4 (6.4-8.2) g/dL Albumin 4.1 (3.4-5.0) g/dL Globulin 3.3 (2.6-4.0) g/dL Albumin/Globulin Ratio 1.2 (0.9-1.6) Amylase 52 (25-115) U/L Lipase 144 (73-393) U/L Meds: Medications Discontinued Medications Generic Name Dose Route Start Last Admin Trade Name Freq PRN Reason Stop Dose Admin Diphenhydramine HCl 25 mg 08/20/20 19:55 08/20/20 20:07 Benadryl IVPUSH 08/20/20 19:56 25 mg ONETIME ONE Administration Haloperidol Lactate 5 mg 08/20/20 19:54 08/20/20 20:08 Haldol IM 08/20/20 19:55 5 mg ONETIME ONE Administration Sodium Chloride 1,000 mls @ 999 mls/hr 08/20/20 19:43 08/20/20 19:56 Normal Saline IV 08/20/20 20:43 999 mls/hr .Bolus ONE Administration Pantoprazole Sodium 40 mg/ 10 mls @ 300 mls/hr 08/20/20 19:55 08/20/20 20:08 Sodium Chloride IV 08/20/20 19:56 300 mls/hr NOW ONE Administration Ondansetron HCl 4 mg 08/20/20 19:43 08/20/20 19:56 Zofran IVPUSH 08/20/20 19:44 4 mg ONETIME ONE Administration - Re-Assessments/Exams Free Text/Narrative Re-Assessment/Exam: 08/20/20 20:48 The patient states she feels much better and is ready to go home. Concludes by saying "I need to make better choices". Departure - Departure Time of Disposition: 20:49 Disposition: Home, Self-Care 01 Condition: Good Clinical Impression: Cyclic vomiting syndrome - Discharge Information Referrals: PCP,None [Primary Care Provider] - Allyson Christian MD [Physician] - Forms: ED Department Discharge Additional Instructions: The following information is given to patients seen in the emergency department who are being discharged to home. This information is to outline your options for follow-up care. We provide all patients seen in our emergency department with a follow-up referral. The need for follow-up, as well as the timing and circumstances, are variable depending upon the specifics of your emergency department visit. If you don't have a primary care physician on staff, we will provide you with a referral. We always advise you to contact your personal physician following an emergency department visit to inform them of the circumstance of the visit and for follow-up with them and/or the need for any referrals to a consulting specialist. The emergency department will also refer you to a specialist when appropriate. This referral assures that you have the opportunity for follow-up care with a specialist. All of these measure are taken in an effort to provide you with optimal care, which includes your follow-up. Under all circumstances we always encourage you to contact your private physician who remains a resource for coordinating your care. When calling for follow-up care, please make the office aware that this follow-up is from your recent emergency room visit. If for any reason you are refused follow-up, please contact the [facility] Emergency Department at and asked to speak to the emergency department charge nurse. 1. Refrain from using marijuana 2. Drink plenty of oral fluids 3. Follow up with your primary provider to discuss anxiety management 4. Zofran every 6 hours as needed for nausea Sepsis Event Note (ED) - Evaluation Sepsis Screening Result: No Definite Risk - Focused Exam Vital Signs: Vital Signs Temp Pulse Resp BP Pulse Ox 08/20/20 19:38 36.3 C 92 20 133/82 96
[2020-08-20] MEDS ORDERED: Haloperidol Lactate 5 MG/ML SDV IM ONE (19:54)
[2020-08-20] MEDS ORDERED: diphenhydrAMINE 50 MG/ML SDV IVPUSH ONE (19:55)
[2020-08-20] MEDS ORDERED: Pantoprazole 40 MG in Sodium Chloride 0.9% 10 ML IV ONE (19:55)
[2020-08-20 20:19] LABS: BLOOD UREA NITROGEN,BUN 9 mg/dL (7.0-18.0); CARBON DIOXIDE,CO2 24.8 mmol/L (21.0-32.0); CHLORIDE,CL 106 mmol/L (98-107); GLUCOSE RANDOM 127 mg/dL (74-106); LIPASE 144 U/L (73-393); POTASSIUM,K 3.8 mmol/L (3.5-5.1); SODIUM,NA 140 mmol/L (136-145)
== END 2020-08-20 21:09 | disposition home or self-care (01) ==
LOC: MW.ED 19:27
DX: R11.15 Cyclical vomiting syndrome unrelated to migraine (principal); R10.13 Epigastric pain; E66.9 Obesity, unspecified; Z68.36 Body mass index [BMI] 36.0-36.9, adult
CPT/HCPCS: 36415; 80053; 82150; 83690; 85025; 96372; 96374; 96375; 99284; C9113; J1200; J1630; J2405; J7030; 99285

== ENCOUNTER 2020-08-20 22:11 | Emergency (ER) | payer SELFPAY ==
[2020-08-20] MEDS ORDERED: Lactated Ringers 1,000 ML IV ONE (22:25)
[2020-08-20] MEDS ORDERED: Haloperidol Lactate 5 MG/ML SDV IM ONE ×2 (22:25→23:32)
[2020-08-20] MEDS ORDERED: Morphine 4 MG/ML Syringe IVPUSH ONE (22:25)
--- NOTE | 2020-08-20 23:24 | EDM.PDOC ---
ED HPI GENERAL MEDICAL PROBLEM - General Chief Complaint: Gastrointestinal Problem Stated Complaint: ABDOMINAL PAIN Time Seen by Provider: 08/20/20 22:13 - History of Present Illness INITIAL COMMENTS - FREE TEXT/NARRATIVE: 50-year-old female with a history of prior heavy daily marijuana use 4-6 times daily but no marijuana use for the last week who is presenting with epigastric pain nausea and vomiting. Patient was seen for this complaint on August 17 at that time blood work was unremarkable and CT scan was likewise unremarkable she improved with medication and fluid and was discharged with a diagnosis of cyclic vomiting syndrome. Patient was seen here again earlier this evening she had blood work which was again unremarkable she improved with Protonix IV fluids Haldol and Benadryl and was subsequently discharged. She states that she felt quite well when she left but then developed worsening symptoms after trying to take a few sips of water and developing emesis again. She presents now with severe epigastric abdominal pain and p.o. intolerance. No fevers no chills. No prior history of bowel obstructions only abdominal surgery was a . Symptoms are triggered by any p.o. intake there is no alleviating factors radiation or other associated symptoms. 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: Dysfunctional Uterine Bleeding, , Spontaneous Musculoskeletal History: Reports: Back Pain, Chronic Neurological History: Reports: Concussion, Other (See Below) Other Neuro History: has claustrophobia and motion sickness Psychiatric History: Reports: Anxiety, Depression Endocrine/Metabolic History: Reports: Obesity/BMI 30+ - Infectious Disease History Infectious Disease History: Reports: Chicken Pox - Past Surgical History HEENT Surgical History: Reports: Naso-Sinus Surgery Female Surgical History: Reports: Section, Tubal Ligation Social & Family History - Family History Family Medical History: No Pertinent Family History - Tobacco Use Tobacco Use Status *Q: Current Some Day Tobacco User Years of Tobacco use: 10 Packs/Tins Daily: 0.1 - Caffeine Use Caffeine Use: Reports: Coffee, Energy Drinks - Recreational Drug Use Recreational Drug Use: Yes Drug Use in Last 12 Months: Yes Recreational Drug Type: Reports: Marijuana/Hashish ED ROS GENERAL - Review of Systems Review Of Systems: See Below Free Text/Narrative/Comment: General: No fever. Skin: No rash. Eyes: No vision problems. ENT: No sore throat. Neck: No neck stiffness. Respiratory: No shortness of breath. Cardiac: No chest pain. Gastrointestinal: Per HPI Urinary: No dysuria. Musculoskeletal: No myalgias/arthralgias. Neurologic: No headache. ED EXAM, GENERAL - Physical Exam Exam: See Below Free Text/Narrative:: General Appearance: No acute distress, appears comfortable Skin: No rash HEENT: Normocephalic/atraumatic, sclera anicteric, mucous membranes moist Neck: Normal range of motion Chest and Lungs: Bilateral breath sounds, clear to auscultation Cardiovascular: Regular rate and rhythm, no murmur Abdomen: Soft, non-tender Back: Normal Musculoskeletal: No edema or tenderness Neurologic: Awake, alert, no obvious deficits, moving all extremities Psychiatric: Appropriate, cooperative #1 Interpretation EKG Date: 08/21/20 Time: 02:23 EKG Interpretation Comments: EKG demonstrates sinus rhythm with a rate of 53 normal axis and intervals QTC 412 no acute ischemia Course - Vital Signs Last Recorded V/S: Last Vital Signs Temp 97.3 F 08/20/20 22:16 Pulse 78 08/21/20 00:41 Resp 16 08/21/20 00:41 BP 164/83 H 08/21/20 00:41 Pulse Ox 95 08/21/20 00:41 - Orders/Labs/Meds Orders: Active Orders 24 hr Category Date Time Status EKG Documentation Completion [RC] STAT Care 08/21/20 01:29 Active Labs: Laboratory Tests 08/21/20 Range/Units 01:35 Troponin I < 0.050 (0.000-0.056) ng/mL Meds: Medications Discontinued Medications Generic Name Dose Route Start Last Admin Trade Name Freq PRN Reason Stop Dose Admin Diphenhydramine HCl 25 mg 08/20/20 23:31 08/20/20 23:39 Benadryl IVPUSH 08/20/20 23:32 25 mg ONETIME ONE Administration Haloperidol Lactate 5 mg 08/20/20 22:25 08/20/20 22:40 Haldol IM 08/20/20 22:26 5 mg ONETIME ONE Administration Haloperidol Lactate 2.5 mg 08/20/20 23:32 08/20/20 23:38 Haldol IM 08/20/20 23:33 2.5 mg ONETIME ONE Administration Lactated Ringer's 1,000 mls @ 999 mls/hr 08/20/20 22:25 08/20/20 22:39 Ringers, Lactated IV 08/20/20 23:25 999 mls/hr .BOLUS ONE Administration Lorazepam 1 mg 08/21/20 02:27 08/21/20 02:45 Ativan IVPUSH 08/21/20 02:28 1 mg ONETIME ONE Administration Morphine Sulfate 4 mg 08/20/20 22:25 08/20/20 22:39 Morphine IVPUSH 08/20/20 22:26 4 mg ONETIME ONE Administration Promethazine HCl 25 mg 08/21/20 00:24 08/21/20 00:41 Phenergan IM 08/21/20 00:25 25 mg ONETIME ONE Administration Departure - Departure Time of Disposition: 03:16 Disposition: Home, Self-Care 01 Condition: Good Clinical Impression: Cyclic vomiting syndrome - Discharge Information *PRESCRIPTION DRUG MONITORING PROGRAM REVIEWED*: Not Applicable *COPY OF PRESCRIPTION DRUG MONITORING REPORT IN PATIENT STERLING: Not Applicable Instructions: Cyclic Vomiting Syndrome, Adult Referrals: [facility] [Outside] - 1 Week (If you do not have a primary care doctor please follow-up at the clinic.) Forms: ED Department Discharge Additional Instructions: I encourage you to follow-up with your primary care doctor if you do not have a primary care doctor you could follow-up with the [facility]. The following information is given to patients seen in the emergency department who are being discharged to home. This information is to outline your options for follow-up care. We provide all patients seen in our emergency department with a follow-up referral. The need for follow-up, as well as the timing and circumstances, are variable depending upon the specifics of your emergency department visit. If you don't have a primary care physician on staff, we will provide you with a referral. We always advise you to contact your personal physician following an emergency department visit to inform them of the circumstance of the visit and for follow-up with them and/or the need for any referrals to a consulting specialist. The emergency department will also refer you to a specialist when appropriate. This referral assures that you have the opportunity for follow-up care with a specialist. All of these measure are taken in an effort to provide you with optimal care, which includes your follow-up. Under all circumstances we always encourage you to contact your private physician who remains a resource for coordinating your care. When calling for follow-up care, please make the office aware that this follow-up is from your recent emergency room visit. If for any reason you are refused follow-up, please contact the [facility] Emergency Department at and asked to speak to the emergency department charge nurse. Sepsis Event Note (ED) - Evaluation Sepsis Screening Result: No Definite Risk - Focused Exam Vital Signs: Vital Signs Temp Pulse Resp BP Pulse Ox 08/21/20 00:41 78 16 164/83 H 95 08/20/20 23:44 91 18 146/71 H 96 08/20/20 22:46 67 18 146/71 H 95 08/20/20 22:16 97.3 F 76 20 145/81 H 96 - My Orders Last 24 Hours: My Active Orders 08/21/20 01:29 EKG Documentation Completion [RC] STAT - Assessment/Plan Last 24 Hours: My Active Orders 08/21/20 01:29 EKG Documentation Completion [RC] STAT Assessment:: 50-year-old female presenting with signs and symptoms that are most consistent with cyclic vomiting syndrome. Patient's abdominal exam is benign she has had extensive evaluation for this recently including 2 rounds of blood work most recently this evening as well as a CT scan for these complaints only 3 days ago. Given this I would not repeat blood work or imaging today. Will provide additional symptomatic management and reassess. I do not have a concern for appendicitis diverticulitis small bowel obstruction large bowel obstruction etc. I do not have a clinical concern for ACS in this patient. No cough fever or other infectious symptoms. 0252: Patient has required multiple doses of medications 2 rounds of Haldol dose of Benadryl a dose of Phenergan she no longer has active retching or emesis she has been able to tolerate water. She did complain of significant chest pain and so EKG chest x-ray and troponin were added these were unremarkable. On repeat interview though she describes it as chest pain it is really more epigastric discomfort similar to what she was complaining of prior. I do think we are making slow progress we will continue p.o. trial and reassess. 0315: On reassessment patient is now resting comfortably she was easily awoken and states that she feels much better. She agrees that she would do best at home. I do think anxiety and the discomfort of the chair was playing heavily into her symptoms as she been much more comfortable after the Ativan and being moved to a bed. Before discharge with outpatient follow-up.
[2020-08-20] MEDS ORDERED: diphenhydrAMINE 50 MG/ML SDV IVPUSH ONE (23:31)
[2020-08-21] MEDS ORDERED: Promethazine 25 MG/ML SDV IM ONE (00:24)
--- NOTE | 2020-08-21 02:14 | CR ---
Indication: Chest pain Technique: Chest 1 view Comparison: Chest x-ray 08/17/2020 Findings/Impression: Cardiovascular and mediastinum: Heart size and vasculature are normal in caliber and appearance. Lungs and pleural space: Lungs are clear. No sign of infiltrate or mass. No sign of pleural effusion. No pneumothorax. Bones and soft tissues: No acute findings. Dictated by Selvin Pascual MD @ Aug 21 2020 2:11AM Signed by Dr. Selvin Pascual @ Aug 21 2020 2:14AM
[2020-08-21] MEDS ORDERED: LORazepam 2 MG/ML SDV IVPUSH ONE (02:27)
== END 2020-08-21 03:45 | disposition home or self-care (01) ==
LOC: MW.ED 22:11
DX: R11.15 Cyclical vomiting syndrome unrelated to migraine (principal); E66.9 Obesity, unspecified; Z68.36 Body mass index [BMI] 36.0-36.9, adult
CPT/HCPCS: 36415; 71045; 84484; 93005; 96372; 96374; 96375; 99284; J1200; J1630; J2060; J2270; J2550; J7120

== ENCOUNTER 2020-08-25 15:04 | Emergency (ER) | payer SELFPAY ==
[2020-08-25] MEDS ORDERED: Sodium Chloride 0.9% 1,000 ML IV ONE (15:32)
[2020-08-25] MEDS ORDERED: Alum Hydrox/Mag Hydrox/Simeth 15 ML, Lidocaine 2% 5 ML PO ONE ×2 (15:32)
[2020-08-25] MEDS ORDERED: Haloperidol Lactate 5 MG/ML SDV IM ONE (15:32)
[2020-08-25] MEDS ORDERED: diphenhydrAMINE 50 MG/ML SDV IM ONE (15:32)
--- NOTE | 2020-08-25 15:38 | EDM.PDOC ---
ED HPI GENERAL MEDICAL PROBLEM - General Chief Complaint: Abdominal Pain Stated Complaint: VOMITTING,NAUSEA Time Seen by Provider: 08/25/20 15:15 Source of Information: Reports: Patient History Limitations: Reports: No Limitations - History of Present Illness INITIAL COMMENTS - FREE TEXT/NARRATIVE: Patient is a 50-year-old female presents today for nausea and vomiting. Patient states this recent episode started this morning she has not been to tolerate anything by mouth. Patient has been dealing with the symptoms for the past few months has been to the ER numerous times and had imaging and labs that showed no cause of why she keeps having his nausea and vomiting. Patient states that she also stop smoking marijuana at that she was told by your physician this could be the cause. Patient denies any constipation is having regular bowel movements no urinary symptoms no fever chills. Patient has no abdominal pain. abdominal Pain Score (Numeric/FACES): 10 - Related Data Allergies Allergy/AdvReac Type Severity Reaction Status Date / Time No Known Allergies Allergy Verified 08/25/20 15:18 Home Meds: Home Meds Ondansetron [Zofran ODT] 1 tab PO Q6H PRN #10 tab.dis 08/20/20 [Rx] Past Medical History HEENT History: Reports: Hard of Hearing, Other (See Below) Other HEENT History: wears glasses Cardiovascular History: Reports: None Respiratory History: Reports: None Gastrointestinal History: Reports: None, Other (See Below) Other Gastrointestinal History: frequent heartburn- takes TUMS Genitourinary History: Reports: Urinary Incontinence [employer] History: Reports: Dysfunctional Uterine Bleeding, , Spontaneous Musculoskeletal History: Reports: Back Pain, Chronic Neurological History: Reports: Concussion, Other (See Below) Other Neuro History: has claustrophobia and motion sickness Psychiatric History: Reports: Anxiety, Depression Endocrine/Metabolic History: Reports: Obesity/BMI 30+ Hematologic History: Reports: None Immunologic History: Reports: None Oncologic (Cancer) History: Reports: None Dermatologic History: Reports: None - Infectious Disease History Infectious Disease History: Reports: Chicken Pox - Past Surgical History Head Surgeries/Procedures: Reports: None HEENT Surgical History: Reports: Naso-Sinus Surgery Female Surgical History: Reports: Section, Tubal Ligation Social & Family History - Family History Family Medical History: No Pertinent Family History - Caffeine Use Caffeine Use: Reports: Coffee - Recreational Drug Use Recreational Drug Use: Yes Recreational Drug Type: Reports: Marijuana/Hashish Recreational Drug Use Frequency: Daily ED ROS GENERAL - Review of Systems Review Of Systems: See Below Constitutional: Reports: No Symptoms HEENT: Reports: No Symptoms Respiratory: Reports: No Symptoms Cardiovascular: Reports: No Symptoms Endocrine: Reports: No Symptoms GI/Abdominal: Reports: Nausea, Vomiting : Reports: No Symptoms Musculoskeletal: Reports: No Symptoms Skin: Reports: No Symptoms Neurological: Reports: No Symptoms Psychiatric: Reports: No Symptoms Hematologic/Lymphatic: Reports: No Symptoms Immunologic: Reports: No Symptoms ED EXAM, GENERAL - Physical Exam Exam: See Below Exam Limited By: No Limitations General Appearance: Alert, No Apparent Distress Eye Exam: Bilateral Eye: EOMI, PERRL Head: Atraumatic Respiratory/Chest: No Respiratory Distress, Lungs Clear Cardiovascular: Normal Peripheral Pulses, Regular Rate, Rhythm GI/Abdominal: Normal Bowel Sounds, Soft, Non-Tender Neurological: Alert, Oriented, CN II-XII Intact, Normal Cognition, Normal Gait Course - Vital Signs Last Recorded V/S: Last Vital Signs Temp 97.6 F 08/25/20 15:08 Pulse 92 08/25/20 17:33 Resp 17 08/25/20 17:33 BP 131/71 08/25/20 17:33 Pulse Ox 96 08/25/20 17:33 - Orders/Labs/Meds Labs: Laboratory Tests 08/25/20 08/25/20 08/25/20 Range/Units 15:37 15:37 16:50 WBC 14.22 H (4.0-11.0) K/uL RBC 5.18 (4.30-5.90) M/uL Hgb 16.0 (12.0-16.0) g/dL Hct 48.2 H (36.0-46.0) % MCV 93.1 (80.0-98.0) fL MCH 30.9 (27.0-32.0) pg MCHC 33.2 (31.0-37.0) g/dL RDW Std Deviation 44.3 (28.0-62.0) fl RDW Coeff of Jordi 13 (11.0-15.0) % Plt Count 225 (150-400) K/uL MPV 13.30 H (7.40-12.00) fL Neut % (Auto) 86.8 H (48.0-80.0) % Lymph % (Auto) 10.7 L (16.0-40.0) % Hardin % (Auto) 2.0 (0.0-15.0) % Eos % (Auto) 0.3 (0.0-7.0) % Baso % (Auto) 0.2 (0.0-1.5) % Neut # (Auto) 12.4 H (1.4-5.7) K/uL Lymph # (Auto) 1.5 (0.6-2.4) K/uL Hardin # (Auto) 0.3 (0.0-0.8) K/uL Eos # (Auto) 0.0 (0.0-0.7) K/uL Baso # (Auto) 0.0 (0.0-0.1) K/uL Nucleated RBC % 0.0 /100WBC Nucleated RBCs # 0 K/uL Sodium 139 (136-145) mmol/L Potassium 4.0 (3.5-5.1) mmol/L Chloride 103 (98-107) mmol/L Carbon Dioxide 24.5 (21.0-32.0) mmol/L BUN 12 (7.0-18.0) mg/dL Creatinine 0.9 (0.6-1.0) mg/dL Est Cr Clr Drug Dosing 73.53 mL/min Estimated GFR (MDRD) > 60.0 ml/min Glucose 162 H (74-106) mg/dL Calcium 9.8 (8.5-10.1) mg/dL Phosphorus 3.6 (2.6-4.7) mg/dL Magnesium 2.1 (1.8-2.4) mg/dL Total Bilirubin 0.5 (0.2-1.0) mg/dL AST 42 H (15-37) IU/L ALT 108 H (14-63) IU/L Alkaline Phosphatase 105 (46-116) U/L Creatine Kinase 103 (26-308) U/L Troponin I < 0.050 (0.000-0.056) ng/mL Total Protein 8.0 (6.4-8.2) g/dL Albumin 4.4 (3.4-5.0) g/dL Globulin 3.6 (2.6-4.0) g/dL Albumin/Globulin Ratio 1.2 (0.9-1.6) Lipase 150 (73-393) U/L Urine Color YELLOW Urine Appearance CLEAR Urine pH 8.0 (5.0-8.0) Ur Specific [place] 1.015 (1.001-1.035) Urine Protein NEGATIVE (NEGATIVE) mg/dL Urine Glucose (UA) NEGATIVE (NEGATIVE) mg/dL Urine Ketones 15 H (NEGATIVE) mg/dL Urine Occult Blood NEGATIVE (NEGATIVE) Urine Nitrite NEGATIVE (NEGATIVE) Urine Bilirubin NEGATIVE (NEGATIVE) Urine Urobilinogen 0.2 (<2.0) EU/dL Ur Leukocyte Esterase NEGATIVE (NEGATIVE) Urine Opiates Screen (NEGATIVE) Ur Oxycodone Screen (NEGATIVE) Urine Methadone Screen (NEGATIVE) Ur Barbiturates Screen (NEGATIVE) Ur Phencyclidine Scrn (NEGATIVE) Ur Amphetamine Screen (NEGATIVE) U Methamphetamines Scrn (NEGATIVE) U Benzodiazepines Scrn (NEGATIVE) U Cocaine Metab Screen (NEGATIVE) U Marijuana (THC) Screen (NEGATIVE) 08/25/20 Range/Units 16:50 WBC (4.0-11.0) K/uL RBC (4.30-5.90) M/uL Hgb (12.0-16.0) g/dL Hct (36.0-46.0) % MCV (80.0-98.0) fL MCH (27.0-32.0) pg MCHC (31.0-37.0) g/dL RDW Std Deviation (28.0-62.0) fl RDW Coeff of Jordi (11.0-15.0) % Plt Count (150-400) K/uL MPV (7.40-12.00) fL Neut % (Auto) (48.0-80.0) % Lymph % (Auto) (16.0-40.0) % Hardin % (Auto) (0.0-15.0) % Eos % (Auto) (0.0-7.0) % Baso % (Auto) (0.0-1.5) % Neut # (Auto) (1.4-5.7) K/uL Lymph # (Auto) (0.6-2.4) K/uL Hardin # (Auto) (0.0-0.8) K/uL Eos # (Auto) (0.0-0.7) K/uL Baso # (Auto) (0.0-0.1) K/uL Nucleated RBC % /100WBC Nucleated RBCs # K/uL Sodium (136-145) mmol/L Potassium (3.5-5.1) mmol/L Chloride (98-107) mmol/L Carbon Dioxide (21.0-32.0) mmol/L BUN (7.0-18.0) mg/dL Creatinine (0.6-1.0) mg/dL Est Cr Clr Drug Dosing mL/min Estimated GFR (MDRD) ml/min Glucose (74-106) mg/dL Calcium (8.5-10.1) mg/dL Phosphorus (2.6-4.7) mg/dL Magnesium (1.8-2.4) mg/dL Total Bilirubin (0.2-1.0) mg/dL AST (15-37) IU/L ALT (14-63) IU/L Alkaline Phosphatase (46-116) U/L Creatine Kinase (26-308) U/L Troponin I (0.000-0.056) ng/mL Total Protein (6.4-8.2) g/dL Albumin (3.4-5.0) g/dL Globulin (2.6-4.0) g/dL Albumin/Globulin Ratio (0.9-1.6) Lipase (73-393) U/L Urine Color Urine Appearance Urine pH (5.0-8.0) Ur Specific [place] (1.001-1.035) Urine Protein (NEGATIVE) mg/dL Urine Glucose (UA) (NEGATIVE) mg/dL Urine Ketones (NEGATIVE) mg/dL Urine Occult Blood (NEGATIVE) Urine Nitrite (NEGATIVE) Urine Bilirubin (NEGATIVE) Urine Urobilinogen (<2.0) EU/dL Ur Leukocyte Esterase (NEGATIVE) Urine Opiates Screen NEGATIVE (NEGATIVE) Ur Oxycodone Screen NEGATIVE (NEGATIVE) Urine Methadone Screen NEGATIVE (NEGATIVE) Ur Barbiturates Screen NEGATIVE (NEGATIVE) Ur Phencyclidine Scrn NEGATIVE (NEGATIVE) Ur Amphetamine Screen NEGATIVE (NEGATIVE) U Methamphetamines Scrn NEGATIVE (NEGATIVE) U Benzodiazepines Scrn NEGATIVE (NEGATIVE) U Cocaine Metab Screen NEGATIVE (NEGATIVE) U Marijuana (THC) Screen POSITIVE (NEGATIVE) Meds: Medications Discontinued Medications Generic Name Dose Route Start Last Admin Trade Name Freq PRN Reason Stop Dose Admin Al Hydroxide/Mg Hydroxide 15 0 ml 08/25/20 15:32 08/25/20 15:50 ml/ Lidocaine HCl 5 ml PO 08/25/20 15:33 1 each ONETIME ONE Administration Diphenhydramine HCl 25 mg 08/25/20 15:32 08/25/20 15:56 Benadryl IM 08/25/20 15:33 Not Given ONETIME ONE Diphenhydramine HCl 25 mg 08/25/20 15:56 08/25/20 15:57 Benadryl IVPUSH 08/25/20 15:57 25 mg ONETIME ONE Administration Haloperidol Lactate 5 mg 08/25/20 15:32 08/25/20 15:54 Haldol IM 08/25/20 15:33 5 mg ONETIME ONE Administration Sodium Chloride 1,000 mls @ 999 mls/hr 08/25/20 15:32 08/25/20 15:50 Normal Saline IV 08/25/20 16:32 999 mls/hr .BOLUS ONE Administration Morphine Sulfate 4 mg 08/25/20 16:27 08/25/20 16:48 Morphine IVPUSH 08/25/20 16:28 4 mg ONETIME ONE Administration - Re-Assessments/Exams Free Text/Narrative Re-Assessment/Exam: 08/25/20 18:06 Patient has been observed in ED vomiting has resolved pain has resolved. Patient given ultrasound results and told to keep a close eye on she develop any increased pain in her upper quadrant. Patient will be given follow-up with general surgery. Departure - Departure Time of Disposition: 18:07 Disposition: Home, Self-Care 01 Condition: Good Clinical Impression: Gastroenteritis - Discharge Information *PRESCRIPTION DRUG MONITORING PROGRAM REVIEWED*: Not Applicable *COPY OF PRESCRIPTION DRUG MONITORING REPORT IN PATIENT STERLING: Not Applicable Instructions: Nausea and Vomiting, Adult, [id number] Referrals: Allyson Christian MD [Primary Care Provider] - Forms: ED Department Discharge Additional Instructions: The following information is given to patients seen in the emergency department who are being discharged to home. This information is to outline your options for follow-up care. We provide all patients seen in our emergency department with a follow-up referral. The need for follow-up, as well as the timing and circumstances, are variable depending upon the specifics of your emergency department visit. If you don't have a primary care physician on staff, we will provide you with a referral. We always advise you to contact your personal physician following an emergency department visit to inform them of the circumstance of the visit and for follow-up with them and/or the need for any referrals to a consulting specialist. The emergency department will also refer you to a specialist when appropriate. This referral assures that you have the opportunity for follow-up care with a specialist. All of these measure are taken in an effort to provide you with optimal care, which includes your follow-up. Under all circumstances we always encourage you to contact your private physician who remains a resource for coordinating your care. When calling for follow-up care, please make the office aware that this follow-up is from your recent emergency room visit. If for any reason you are refused follow-up, please contact the [facility] Emergency Department at and asked to speak to the emergency department charge nurse. Please follow up with your primary care physician. If you do not have a primary care physician, see below: [facility] - General Surgery Professional Building [address] [place] [address], [address] [place] [address] Please follow-up with surgery as outpatient. If you have any difficulty tolerating food or liquids at home please return to the ED. Sepsis Event Note (ED) - Evaluation Sepsis Screening Result: No Definite Risk - Focused Exam Vital Signs: Vital Signs Temp Pulse Resp BP Pulse Ox 08/25/20 17:33 92 17 131/71 96 08/25/20 16:33 83 17 142/64 H 97 08/25/20 16:03 83 17 141/84 H 97 08/25/20 15:08 97.6 F 89 18 132/60 97 - Assessment/Plan Plan: Patient is a 50-year-old female presents today for nausea vomiting. Patient had the symptoms recurrently for the past few weeks without known cause of her symptoms. Today we will treat symptoms also draw labs and perform ultrasound.
[2020-08-25] MEDS ORDERED: diphenhydrAMINE 50 MG/ML SDV IVPUSH ONE (15:56)
[2020-08-25 16:15] LABS: BLOOD UREA NITROGEN,BUN 12 mg/dL (7.0-18.0); CARBON DIOXIDE,CO2 24.5 mmol/L (21.0-32.0); CHLORIDE,CL 103 mmol/L (98-107); GLUCOSE RANDOM 162 mg/dL (74-106); LIPASE 150 U/L (73-393); SODIUM,NA 139 mmol/L (136-145)
[2020-08-25] MEDS ORDERED: Morphine 4 MG/ML Syringe IVPUSH ONE (16:27)
--- NOTE | 2020-08-25 17:26 | US ---
Indication: Right upper quadrant abdomen pain TECHNIQUE: Ultrasound abdomen limited. Sonographic images of the right upper quadrant were obtained using ch-scale and color Doppler images. Comparison: CT abdomen and pelvis August 17, 2020 FINDINGS: Liver: The liver is enlarged with hepatic steatosis. No focal abnormality is identified. No masses. No intrahepatic biliary dilatation. Gallbladder: There is dependent sludge within the gallbladder without significant pericholecystic fluid or gallbladder wall thickening. There is small dependent calculi. There is sonographic tenderness to palpation.. Common bile duct: 3.7 mm. Pancreas: Normal. Vascular structures: Normal aorta and IVC. Right kidney: No evidence of shadowing calculus or hydronephrosis. Impression: Demonstration of minimal sludge and likely dependent calculi with sonographic Travis`s tenderness. No overt pericholecystic fluid or gallbladder wall thickening. If there remains persistent concern for developing acute cholecystitis, follow-up with hepatobiliary imaging study is recommended. Hepatic steatosis and hepatomegaly. Dictated by Arash Valencia MD @ Aug 25 2020 5:20PM Signed by Dr. Arash Valencia @ Aug 25 2020 5:24PM
== END 2020-08-25 18:22 | disposition home or self-care (01) ==
LOC: MW.ED 15:04
DX: K52.9 Noninfective gastroenteritis and colitis, unspecified (principal); E66.9 Obesity, unspecified; Z68.36 Body mass index [BMI] 36.0-36.9, adult
CPT/HCPCS: 76705; 80053; 80305; 81003; 82550; 83690; 83735; 84100; 84484; 85025; 96372; 96374; 96375; 99284; A9270; J1200; J1630; J2270; J7030; 99283

== ENCOUNTER 2020-08-27 07:29 | Emergency (ER) | payer SELFPAY ==
[2020-08-27] MEDS ORDERED: Ketorolac 30 MG/ML SDV IVPUSH ONE (08:06)
[2020-08-27] MEDS ORDERED: Dicyclomine 10 MG Cap PO ONE (08:06)
[2020-08-27] MEDS ORDERED: Ondansetron 4 MG/2 ML SDV IVPUSH ONE (08:06)
[2020-08-27] MEDS ORDERED: LORazepam 2 MG/ML SDV IVPUSH ONE (08:30)
[2020-08-27 08:39] LABS: BLOOD UREA NITROGEN,BUN 14 mg/dL (7.0-18.0); CARBON DIOXIDE,CO2 26.1 mmol/L (21.0-32.0); CHLORIDE,CL 103 mmol/L (98-107); GLUCOSE RANDOM 148 mg/dL (74-106); LIPASE 144 U/L (73-393); SODIUM,NA 140 mmol/L (136-145)
--- NOTE | 2020-08-27 08:40 | EDM.PDOC ---
ED HPI GENERAL MEDICAL PROBLEM - General Chief Complaint: Abdominal Pain Stated Complaint: ABD PAIN Time Seen by Provider: 08/27/20 07:30 - History of Present Illness INITIAL COMMENTS - FREE TEXT/NARRATIVE: History of present illness: [] Complains of worsening of her pain. She was seen here 1126 with abdominal pain and vomiting in the CT scan showed a small lesion in one of the kidneys which was not well described. Otherwise there is nothing remarkable on the CT. She came back on 1130 and then she came back on 12 4. On 4she was documented to have a clinical positive Travis sign with sludge and dependent small calculi in the gallbladder. The wall was not thick. White count had gone from 11,000-14,000. She continues to have severe pain in the right upper quadrant. She has protracted vomiting. The pain is intolerable and she cannot live with it. She insists on being admitted and says she has it well defined and controlled. In June she had surgery in her sacroiliac for injection because of has severe exacerbation of chronic pain as well. Review of systems: As per history of present illness and below otherwise all systems reviewed and negative. Past medical history: As per history of present illness and as reviewed below otherwise noncontributory. Surgical history: As per history of present illness and as reviewed below otherwise noncontributory. Social history: No reported history of drug or alcohol abuse. Family history: As per history of present illness and as reviewed below otherwise noncontributory. Physical exam: Constitutional - well developed, well-nourished and in no acute distress HEENT - normocephalic, no evidence of trauma - external nose and mouth normal - no mass in neck and no JVD - mucosae moist EYES - full EOM, PERRL, no icterus - no evidence of inflammation, injection, or drainage Respiratory - no respiratory distress, equal bilateral expansion, lungs clear to auscultation and no abnormal lung sounds Cardiovascular - Regular Rhythm with S1 and S2 appreciated and no murmur, gallop or rub. GI -in the right upper quadrant abdomen soft without distension or organomegaly - normal bowel sounds - no guard or rebound Musculoskeletal no gross deformity of long bones or joints - no tenderness, swelling or edema Neurologic - Alert and oriented times four - CN II-XII grossly intact - motor sensory and coordination symmetrically normal Psychiatric - appropriate mood and affect with normal thought content Hematologic - No petechiae or purpura - mucosa appropriate color and sclera not pale - normal nail bed color and refill Integument - no rash or evidence of trauma - normal turgor Diagnostics: [] Therapeutics: [] Impression: [] Plan: [] Definitive disposition and diagnosis as appropriate pending reevaluation and review of above. Right Upper Abdomen Pain Score (Numeric/FACES): 10 - Related Data Allergies Allergy/AdvReac Type Severity Reaction Status Date / Time No Known Allergies Allergy Verified 08/25/20 15:18 Home Meds: Home Meds Ondansetron [Zofran ODT] 1 tab PO Q6H PRN #10 tab.dis 08/20/20 [Rx] Acetaminophen/HYDROcodone [[place] 325-7.5 MG] 1 - 2 tab PO Q6H PRN #12 tab 08/27/20 [Rx] Past Medical History HEENT History: Reports: Hard of Hearing, Other (See Below) Other HEENT History: wears glasses Cardiovascular History: Reports: None Respiratory History: Reports: None Gastrointestinal History: Reports: None, Other (See Below) Other Gastrointestinal History: frequent heartburn- takes TUMS Genitourinary History: Reports: Urinary Incontinence [employer] History: Reports: Dysfunctional Uterine Bleeding, , Spontaneous Musculoskeletal History: Reports: Back Pain, Chronic Neurological History: Reports: Concussion, Other (See Below) Other Neuro History: has claustrophobia and motion sickness Psychiatric History: Reports: Anxiety, Depression Endocrine/Metabolic History: Reports: Obesity/BMI 30+ Hematologic History: Reports: None Immunologic History: Reports: None Oncologic (Cancer) History: Reports: None Dermatologic History: Reports: None - Infectious Disease History Infectious Disease History: Reports: Chicken Pox - Past Surgical History Head Surgeries/Procedures: Reports: None HEENT Surgical History: Reports: Naso-Sinus Surgery Female Surgical History: Reports: Section, Tubal Ligation Social & Family History - Family History Family Medical History: No Pertinent Family History - Tobacco Use Tobacco Use Status *Q: Current Every Day Tobacco User Years of Tobacco use: 20 Packs/Tins Daily: 1 - Caffeine Use Caffeine Use: Reports: Coffee - Recreational Drug Use Recreational Drug Use: Yes Recreational Drug Type: Reports: Marijuana/Hashish Recreational Drug Use Frequency: Daily ED ROS GENERAL - Review of Systems Review Of Systems: Comprehensive ROS is negative, except as noted in HPI. ED EXAM, GENERAL - Physical Exam Exam: See Below Free Text/Narrative:: My physical exam is in the HPI Course - Vital Signs Text/Narrative:: 9:15 AM the patient's nausea was better and her pain was slightly better. I told her I would give her days or 2 days worth of strong pain medicine if she would see surgery or primary care and get the nuclear biliary scan that was recommended by radiology when she had her ultrasound. She agreed. Last Recorded V/S: Last Vital Signs Temp 35.6 C L 08/27/20 07:36 Pulse 104 H 08/27/20 07:36 Resp 20 08/27/20 07:36 BP Pulse Ox 95 08/27/20 07:36 - Orders/Labs/Meds Orders: Active Orders 24 hr Category Date Time Status CORONAVIRUS COVID-19 LIN [MOLEC] Stat Lab 08/27/20 08:25 Received Labs: Laboratory Tests 08/27/20 08/27/20 Range/Units 08:00 08:00 WBC 11.18 H (4.0-11.0) K/uL RBC 5.05 (4.30-5.90) M/uL Hgb 15.9 (12.0-16.0) g/dL Hct 46.7 H (36.0-46.0) % MCV 92.5 (80.0-98.0) fL MCH 31.5 (27.0-32.0) pg MCHC 34.0 (31.0-37.0) g/dL RDW Std Deviation 42.6 (28.0-62.0) fl RDW Coeff of Jordi 13 (11.0-15.0) % Plt Count 207 (150-400) K/uL MPV 13.50 H (7.40-12.00) fL Neut % (Auto) 79.2 (48.0-80.0) % Lymph % (Auto) 16.0 (16.0-40.0) % Charles % (Auto) 3.5 (0.0-15.0) % Eos % (Auto) 0.9 (0.0-7.0) % Baso % (Auto) 0.4 (0.0-1.5) % Neut # (Auto) 8.9 H (1.4-5.7) K/uL Lymph # (Auto) 1.8 (0.6-2.4) K/uL Charles # (Auto) 0.4 (0.0-0.8) K/uL Eos # (Auto) 0.1 (0.0-0.7) K/uL Baso # (Auto) 0.0 (0.0-0.1) K/uL Nucleated RBC % 0.0 /100WBC Nucleated RBCs # 0 K/uL Sodium 140 (136-145) mmol/L Potassium 4.0 (3.5-5.1) mmol/L Chloride 103 (98-107) mmol/L Carbon Dioxide 26.1 (21.0-32.0) mmol/L BUN 14 (7.0-18.0) mg/dL Creatinine 0.9 (0.6-1.0) mg/dL Est Cr Clr Drug Dosing 124.53 mL/min Estimated GFR (MDRD) > 60.0 ml/min Glucose 148 H (74-106) mg/dL Calcium 9.7 (8.5-10.1) mg/dL Total Bilirubin 0.6 (0.2-1.0) mg/dL AST 64 H (15-37) IU/L ALT 148 H (14-63) IU/L Alkaline Phosphatase 96 (46-116) U/L Total Protein 7.4 (6.4-8.2) g/dL Albumin 4.2 (3.4-5.0) g/dL Globulin 3.2 (2.6-4.0) g/dL Albumin/Globulin Ratio 1.3 (0.9-1.6) Lipase 144 (73-393) U/L Meds: Medications Discontinued Medications Generic Name Dose Route Start Last Admin Trade Name Freq PRN Reason Stop Dose Admin Dicyclomine HCl 20 mg 08/27/20 08:06 08/27/20 08:19 Bentyl PO 08/27/20 08:07 20 mg ONETIME ONE Administration Ketorolac Tromethamine 30 mg 08/27/20 08:06 08/27/20 08:16 Toradol IVPUSH 08/27/20 08:07 30 mg ONETIME ONE Administration Lorazepam 1 mg 08/27/20 08:30 08/27/20 08:37 Ativan IVPUSH 12/06/20 08:31 1 mg ONETIME ONE Administration Ondansetron HCl 4 mg 08/27/20 08:06 08/27/20 08:16 Zofran IVPUSH 08/27/20 08:07 4 mg ONETIME ONE Administration Departure - Departure Time of Disposition: 09:15 Disposition: Home, Self-Care 01 Condition: Good Clinical Impression: Biliary colic Vomiting Qualifiers: Vomiting type: unspecified Vomiting Intractability: non-intractable Nausea presence: with nausea Qualified Code(s): R11.2 - Nausea with vomiting, unspecified - Discharge Information Prescriptions: Acetaminophen/HYDROcodone [[place] 325-7.5 MG] 1 - 2 tab PO Q6H PRN #12 tab PRN Reason: Pain (Severe 7-10) Referrals: PCP,None [Primary Care Provider] - Forms: ED Department Discharge Additional Instructions: Unfortunately to get a biliary scan in [place] you need to have a primary doctor, clinic, or surgeon refer you and do it as an outpatient. Your white blood cell count has improved. If your condition worsens especially if you have a fever and confusion with abdominal pain you can return to the emergency room and if necessary to get further testing we might need to transfer you. [facility] - General Surgery Professional Building [address] [place] [address], [address] [place] [address] [facility] - Primary Care [address] [place] [address] [place] [address] The following information is given to patients seen in the emergency department who are being discharged to home. This information is to outline your options for follow-up care. We provide all patients seen in our emergency department with a follow-up referral. The need for follow-up, as well as the timing and circumstances, are variable depending upon the specifics of your emergency department visit. If you don't have a primary care physician on staff, we will provide you with a referral. We always advise you to contact your personal physician following an emergency department visit to inform them of the circumstance of the visit and for follow-up with them and/or the need for any referrals to a consulting specialist. The emergency department will also refer you to a specialist when appropriate. This referral assures that you have the opportunity for follow-up care with a specialist. All of these measure are taken in an effort to provide you with optimal care, which includes your follow-up. Under all circumstances we always encourage you to contact your private physician who remains a resource for coordinating your care. When calling for follow-up care, please make the office aware that this follow-up is from your recent emergency room visit. If for any reason you are refused follow-up, please contact the [facility] Emergency Department at and asked to speak to the emergency department charge nurse. Sepsis Event Note (ED) - Evaluation Sepsis Screening Result: No Definite Risk - Focused Exam Vital Signs: Vital Signs Temp Pulse Resp Pulse Ox 08/27/20 07:36 35.6 C L 104 H 20 95 - My Orders Last 24 Hours: My Active Orders 08/27/20 08:25 CORONAVIRUS COVID-19 LIN [MOLEC] Stat - Assessment/Plan Last 24 Hours: My Active Orders 08/27/20 08:25 CORONAVIRUS COVID-19 LIN [MOLEC] Stat
[2020-08-27] MEDS ORDERED: Naproxen 500 MG Tab PO ONE (09:47)
[2020-08-27] MEDS ORDERED: Metoclopramide 10 MG/2 ML SDV IVPUSH ONE (09:48)
== END 2020-08-27 10:32 | disposition home or self-care (01) ==
LOC: MW.ED 07:29
DX: K80.50 Calculus of bile duct without cholangitis or cholecystitis without obstruction (principal); F17.210 Nicotine dependence, cigarettes, uncomplicated; E66.9 Obesity, unspecified; Z20.828 Contact with and (suspected) exposure to other viral communicable diseases
CPT/HCPCS: 80053; 83690; 85025; 87635; 96374; 96375; 99284; A9270; J1885; J2060; J2405; J2765; 99282; U0002

== ENCOUNTER 2020-09-08 07:39 | Day surgery (SDC) | payer BC ==
[~2020-09-08 07:39] MED LIST changes: +ceFAZolin 2 GM in Premix Bag 1 BAG IV ONE
[2020-09-08] MEDS ORDERED: Midazolam 1 MG/ML 2 ML SDV ONE (08:14)
[2020-09-08] MEDS ORDERED: fentaNYL 250 MCG/5 ML SDV ONE ×2 (08:14→10:31)
[2020-09-08] MEDS ORDERED: Propofol 200 MG/20 ML SDV ONE (08:14)
[2020-09-08] MEDS ORDERED: Ketorolac 30 MG/ML SDV ONE (08:15)
[2020-09-08] MEDS ORDERED: Lidocaine 2% 5 ML SDV ONE (08:15)
[2020-09-08] MEDS ORDERED: Ondansetron 4 MG/2 ML SDV ONE (08:15)
[2020-09-08] MEDS ORDERED: Rocuronium Bromide 50 MG/5 ML Syringe ONE (08:15)
[2020-09-08] MEDS ORDERED: Glycopyrrolate 0.2 MG/ML SDV ONE (08:15)
--- NOTE | 2020-09-08 08:18 | PCM.PREANE ---
Preanesthetic Assessment - Anesthesia/Transfusion/Family Hx Anesthesia History: Prior Anesthesia Without Reaction Other Type of Anesthesia Reaction Comment: agitated when awakening because of claustrophobia Family History of Anesthesia Reaction: No Transfusion History: No Prior Transfusion(s) Intubation History: Unknown - Review of Systems General: No Symptoms Pulmonary: No Symptoms Cardiovascular: No Symptoms Gastrointestinal: Abdominal Pain Neurological: No Symptoms Other: Reports: None - Physical Assessment Height: 5 ft 7 in Weight: 125.645 kg ASA Class: 2 Mental Status: Alert & Oriented x3 Airway Class: Mallampati = 2 Dentition: Reports: Normal Dentition, Missing Tooth/Teeth (on both sides but not in the middle) Thyro-Mental Finger Breadths: 3 Mouth Opening Finger Breadths: 3 ROM/Head Extension: Full Lungs: Clear to Auscultation, Normal Respiratory Effort Cardiovascular: Regular Rate, Regular Rhythm - Allergies Allergies/Adverse Reactions: Allergies Allergy/AdvReac Type Severity Reaction Status Date / Time No Known Allergies Allergy Verified 09/05/20 13:38 - Blood Blood Available: No - Anesthesia Plan Pre-Op Medication Ordered: None - Acknowledgements Anesthesia Type Planned: General Anesthesia Pt an Appropriate Candidate for the Planned Anesthesia: Yes Alternatives and Risks of Anesthesia Discussed w Pt/Guardian: Yes Pt/Guardian Understands and Agrees with Anesthesia Plan: Yes PreAnesthesia Questionnaire HEENT History: Reports: Other (See Below) Other HEENT History: wears glasses Cardiovascular History: Reports: None, Other (See Below) (borderline increased cholesterol- no treatment needed) Respiratory History: Reports: Other (See Below) Other Respiratory History: "was told I had the beginning of emphysema", she can walk couple of blocks without problems Gastrointestinal History: Reports: Fatty Liver, GERD, Other (See Below) (elevated LFT, gallbladder sludge) Genitourinary History: Reports: None 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: Dysfunctional Uterine Bleeding, , Spontaneous Musculoskeletal History: Reports: Back Pain, Chronic Neurological History: Reports: Concussion, Other (See Below) Other Neuro History: has claustrophobia and motion sickness Psychiatric History: Reports: Anxiety, Depression, PTSD Endocrine/Metabolic History: Reports: Obesity/BMI 30+ (BMI 43.4), Other (See Below) (thyroid nodules) Hematologic History: Reports: None Immunologic History: Reports: None Oncologic (Cancer) History: Reports: None Dermatologic History: Reports: None - Infectious Disease History Infectious Disease History: Reports: Chicken Pox - Past Surgical History Head Surgeries/Procedures: Reports: None HEENT Surgical History: Reports: Naso-Sinus Surgery Cardiovascular Surgical History: Reports: None Respiratory Surgical History: Reports: None GI Surgical History: Reports: None Female Surgical History: Reports: Section, Tubal Ligation Endocrine Surgical History: Reports: None Neurological Surgical History: Reports: None Musculoskeletal Surgical History: Reports: None Oncologic Surgical History: Reports: None Dermatological Surgical History: Reports: None - SUBSTANCE USE Tobacco Use Status *Q: Current Some Day Tobacco User (only socialy) Tobacco Use Within Last Twelve Months: Cigarettes Recreational Drug Type: Reports: Marijuana/Hashish Recreational Drug Last Use: 09/05/20 - HOME MEDS Home Medications: Home Meds Ondansetron [Zofran ODT] 1 tab PO Q6H PRN #10 tab.dis 08/20/20 [Rx] Acetaminophen/HYDROcodone [Downs 325-7.5 MG] 1 - 2 tab PO Q6H PRN #12 tab 08/27/20 [Rx] LORazepam [Ativan] 0.5 mg PO Q8H PRN #10 tab 08/27/20 [Rx] Ascorbic Acid [Vitamin C] 5 tab PO DAILY 09/05/20 [History] Calcium Carbonate [Tums] 1 tab CHEW ASDIRECTED PRN 09/05/20 [History] Cholecalciferol (Vitamin D3) [Vitamin D3] 5 tab PO DAILY 09/05/20 [History] Cyanocobalamin (Vitamin B12) [Vitamin B12] 5 tab PO DAILY 09/05/20 [History] - CURRENT (IN HOUSE) MEDS Current Meds: Current Medications Lactated Ringer's (Ringers, Lactated) 1,000 mls @ 125 mls/hr IV ASDIRECTED JUAN MANUEL Discontinued Medications Cefazolin Sodium/Dextrose 2 gm (/ Premix) 50 mls @ 100 mls/hr IV ONETIME ONE Stop: 09/08/20 05:29
[2020-09-08] MEDS ORDERED: Scopolamine 1.5 MG Transdermal Patch TRDERM PRN (08:19)
[2020-09-08] MEDS ORDERED: ceFAZolin 1 GM Vial ONE (08:25)
[2020-09-08] MEDS ORDERED: Bupivacaine 25%/EPINEPHrine/PF 30 ML ONE (09:44)
[2020-09-08] MEDS ORDERED: Acetaminophen 1,000 MG in Premix Bag 1 BAG IV PRN (11:03)
[2020-09-08] MEDS ORDERED: Octyl 2-Cyanoacrylate 1 Tube ONE (11:17)
[2020-09-08] MEDS: fentaNYL 100 MCG/2 ML SDV IVPUSH PRN ×2 (12:04→12:10)
--- NOTE | 2020-09-08 12:04 | PCM.OPNOTE ---
- General Post-Op/Procedure Note Date of Surgery/Procedure: 09/08/20 Operative Procedure(s): lap morgan Findings: gb was yellow and green, and severely adhered to surround organs cw chronic cholecystitis, wall was not thickened; [id number] Pre Op Diagnosis: acute and chronic cholecystitis Post-Op Diagnosis: Same Anesthesia Technique: General ET Tube Primary Surgeon: Blas Guzman Pathology: sent Complications: None Condition: Good
[2020-09-08] MEDS ORDERED: HYDROmorphone 2 MG/ML Syringe IVPUSH PRN (12:08)
--- NOTE | 2020-09-08 12:41 | PCM.POSTAN ---
POST ANESTHESIA ASSESSMENT - MENTAL STATUS Mental Status: Alert, Oriented - VITAL SIGNS Vital Signs: Last Vital Signs Temp 36.7 C 09/08/20 11:50 Pulse 82 09/08/20 12:30 Resp 15 09/08/20 12:30 BP 132/66 09/08/20 12:30 Pulse Ox 95 09/08/20 12:30 - RESPIRATORY Respiratory Status: Respiratory Rate WNL, Airway Patent, O2 Saturation Stable - CARDIOVASCULAR CV Status: Pulse Rate WNL, Blood Pressure Stable - GASTROINTESTINAL GI Status: No Symptoms - PAIN Pain Score: 2 - POST OP HYDRATION Hydration Status: Adequate & Stable - OBSERVATIONS Free Text/Narrative:: No anesthesia problems
--- NOTE | 2020-09-08 13:10 | OR ---
SURGEON: Blas Guzman MD DATE OF PROCEDURE: 09/08/2020 PREOPERATIVE DIAGNOSIS: Acute on chronic cholecystitis. POSTOPERATIVE DIAGNOSIS: Acute on chronic cholecystitis. PROCEDURE PERFORMED: Laparoscopic cholecystectomy. PRIMARY SURGEON: Blas Guzman MD COMPLICATIONS: None. FINDINGS: Gallbladder was yellow and green and severely adhered to surrounding organs consistent with chronic cholecystitis. Wall was not thickened. DESCRIPTION OF PROCEDURE: The patient was taken to the operating room and placed in the supine position. After the intubation of general endotracheal anesthesia, the patient's abdomen was prepped and draped in the usual sterile fashion. Using FathomDB, a 12 mm trocar was placed supraumbilically and then followed with pneumoperitoneum. A 5 mm trocar was placed in the epigastrium and two 5 mm trocars placed in the right upper quadrant. The placement of the last three trocars was done under direct video supervision. Upon gaining entrance to the abdominal cavity, an extensive examination was then performed. The gallbladder was located and identified and retracted to the dome of the liver at the triangle of Calot. The cystic duct was clipped three more times and then using the endoscopic clip, was transected with placement of the endoscopic clip and transection was performed with care, ensuring the posterior prong of the instruments were clearly visualized prior to exercising the procedure. The gallbladder was dissected using electrocautery out of the liver bed and then removed using endoscopic bag through the umbilical site. The gallbladder was removed en bloc and there was no bile spillage and this was then followed with extensive irrigation until the bile was clear from blood and bile. The trocars were then removed under direct video supervision. The 12 mm umbilical site was then closed with deep stitches using 0 Vicryl followed with proximal stitches using 3-0 Vicryl and Dermabond. The other three trocar sites were closed with 3-0 Vicryl followed with approximation of skin with Dermabond. The patient was then awakened and extubated and transferred to the recovery room in hemodynamically stable condition. At the conclusion of the surgery, before closing the abdominal wound, instrument count and sponge count were done and were correct. The patient tolerated the procedure well and there were no intraoperative complications. Dr. Guzman was present through the whole procedure. Just before surgery, a timeout was called. The patient was identified and procedure identified and procedure started. CHARAN / SLY /[id number]
--- NOTE | 2020-09-08 14:05 | PCM48HPAN ---
Post Anesthesia Note - EVALUATION WITHIN 48HRS OF ANESTHETIC Vital Signs in Normal Range: Yes Patient Participated in Evaluation: Yes Respiratory Function Stable: Yes Airway Patent: Yes Cardiovascular Function Stable: Yes Hydration Status Stable: Yes Pain Control Satisfactory: Yes Nausea and Vomiting Control Satisfactory: Yes Mental Status Recovered: Yes Vital Signs: Last Vital Signs Temp 36.7 C 09/08/20 11:50 Pulse 82 09/08/20 12:30 Resp 15 09/08/20 12:30 BP 132/66 09/08/20 12:30 Pulse Ox 95 09/08/20 12:30 - COMMENTS/OBSERVATIONS Free Text/Narrative:: No anesthesia problems
[2020-09-08] MEDS ORDERED: Acetaminophen/oxyCODONE 325-5 MG Tab PO ONE (14:15)
== END 2020-09-08 14:35 | disposition home or self-care (01) ==
LOC: MW.SDS 07:39
PROVIDERS: ATTEND Surgery
DX: K81.2 Acute cholecystitis with chronic cholecystitis (principal); G89.29 Other chronic pain; F41.8 Other specified anxiety disorders; J43.9 Emphysema, unspecified; E78.5 Hyperlipidemia, unspecified; E66.9 Obesity, unspecified; F17.210 Nicotine dependence, cigarettes, uncomplicated; Z79.899 Other long term (current) drug therapy; Z98.890 Other specified postprocedural states; Z68.41 Body mass index [BMI] 40.0-44.9, adult
CPT/HCPCS: 47562; A9270; J0131; J0690; J1170; J1885; J2001; J2250; J2405; J2704; J3010; J3490; J7120

== ENCOUNTER 2021-04-06 08:45 | Emergency (ER) | payer MEDICAID ==
[2021-04-06] MEDS ORDERED: LORazepam 2 MG/ML SDV IVPUSH ONE (09:30)
[2021-04-06] MEDS ORDERED: Pantoprazole 40 MG in Sodium Chloride 0.9% 20 ML IVPUSH ONE (09:30)
[2021-04-06] MEDS ORDERED: Ketorolac 30 MG/ML SDV IVPUSH ONE (09:30)
[2021-04-06] MEDS ORDERED: Sodium Chloride 0.9% 1,000 ML IV STA (09:30)
[2021-04-06] MEDS ORDERED: HYDROmorphone 1 MG/ML Syringe IVPUSH ONE (09:54)
[2021-04-06 10:07] LABS: BLOOD UREA NITROGEN,BUN 20 mg/dL (7.0-18.0); CHLORIDE,CL 96 mmol/L (98-107); GLUCOSE RANDOM 161 mg/dL (74-106); LIPASE 98 U/L (73-393); POTASSIUM,K 3.3 mmol/L (3.5-5.1); SODIUM,NA 137 mmol/L (136-145)
--- NOTE | 2021-04-06 10:11 | EDM.PDOC ---
ED HPI GENERAL MEDICAL PROBLEM - General Chief Complaint: Abdominal Pain Stated Complaint: VOMITING/ABD PAIN Time Seen by Provider: 04/06/21 09:35 - History of Present Illness INITIAL COMMENTS - FREE TEXT/NARRATIVE: History of present illness: [] This patient seems to be suffering. She is crying and screaming. She is rocking and rolling. She says she has severe pain in the epigastrium that radiates up into her the posterior part of her chest. Patient's pain is extremely severe and it appears hyperacute but she says she suffered just like this for 3 days. She has nausea without vomiting. She has anxiety. She has no bowel movement for 2 days. Review of systems: As per history of present illness and below otherwise all systems reviewed and negative. Past medical history: As per history of present illness and as reviewed below otherwise noncontributory. Surgical history: As per history of present illness and as reviewed below otherwise noncontributory. Social history: No reported history of drug or alcohol abuse. Family history: As per history of present illness and as reviewed below otherwise noncontributory. Physical exam: Constitutional - well developed, well-nourished and in acute distress HEENT - normocephalic, no evidence of trauma - external nose and mouth normal - no mass in neck and no JVD - mucosae moist EYES - full EOM, PERRL, no icterus - no evidence of inflammation, injection, or drainage Respiratory -tenderness of the chest wall anteriorly on the sternal borders. No respiratory distress, equal bilateral expansion, lungs clear to auscultation and no abnormal lung sounds Cardiovascular - Regular Rhythm with S1 and S2 appreciated and no murmur, gallop or rub. GI -epigastrium and right upper quadrant palpation did not elicit significant tenderness or guarding. Abdomen soft without distension or organomegaly - normal bowel sounds - no guard or rebound Musculoskeletal no gross deformity of long bones or joints - no tenderness, swelling or edema Neurologic - Alert and oriented times four - CN II-XII grossly intact - motor sensory and coordination symmetrically normal Psychiatric - appropriate mood and affect with normal thought content Hematologic - No petechiae or purpura - mucosa appropriate color and sclera not pale - normal nail bed color and refill Integument - no rash or evidence of trauma - normal turgor Diagnostics: [] Therapeutics: [] Impression: [] Plan: [] Definitive disposition and diagnosis as appropriate pending reevaluation and review of above. abdomen, heartburn Pain Score (Numeric/FACES): 10 - Related Data Allergies Allergy/AdvReac Type Severity Reaction Status Date / Time No Known Allergies Allergy Verified 04/06/21 10:22 Home Meds: Home Meds ALPRAZolam [Xanax] 1 tab PO DAILY PRN 04/06/21 [History] Past Medical History HEENT History: Reports: Other (See Below) Other HEENT History: wears glasses Cardiovascular History: Reports: None, Other (See Below) Respiratory History: Reports: Other (See Below) Other Respiratory History: "was told I had the beginning of emphysema", she can walk couple of blocks without problems Gastrointestinal History: Reports: Fatty Liver, GERD, Other (See Below) Genitourinary History: Reports: None 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: Dysfunctional Uterine Bleeding, , Spontaneous Musculoskeletal History: Reports: Back Pain, Chronic Neurological History: Reports: Concussion, Other (See Below) Other Neuro History: has claustrophobia and motion sickness Psychiatric History: Reports: Anxiety, Depression, PTSD Endocrine/Metabolic History: Reports: Obesity/BMI 30+, Other (See Below) Hematologic History: Reports: None Immunologic History: Reports: None Oncologic (Cancer) History: Reports: None Dermatologic History: Reports: None - Infectious Disease History Infectious Disease History: Reports: Chicken Pox - Past Surgical History Head Surgeries/Procedures: Reports: None HEENT Surgical History: Reports: Naso-Sinus Surgery Cardiovascular Surgical History: Reports: None Respiratory Surgical History: Reports: None GI Surgical History: Reports: None Female Surgical History: Reports: Section, Tubal Ligation Endocrine Surgical History: Reports: None Neurological Surgical History: Reports: None Musculoskeletal Surgical History: Reports: None Oncologic Surgical History: Reports: None Dermatological Surgical History: Reports: None Social & Family History - Family History Family Medical History: No Pertinent Family History - Caffeine Use Caffeine Use: Reports: Coffee ED ROS GENERAL - Review of Systems Review Of Systems: Comprehensive ROS is negative, except as noted in HPI. ED EXAM, GENERAL - Physical Exam Exam: See Below Free Text/Narrative:: My physical exam is in the HPI Course - Vital Signs Text/Narrative:: 9:50 AM the initial medication did not help see orders. Last Recorded V/S: Last Vital Signs Temp 36.6 C 04/06/21 09:07 Pulse 107 H 04/06/21 09:07 Resp 20 04/06/21 09:07 BP 179/117 H 04/06/21 09:07 Pulse Ox 98 04/06/21 09:07 - Orders/Labs/Meds Orders: Active Orders 24 hr Category Date Time Status CTA Abd Pelv w Cont [CT] Stat Exams 04/06/21 10:44 Taken Labs: Laboratory Tests 04/06/21 04/06/21 04/06/21 Range/Units 09:11 09:11 12:09 WBC 17.11 H (4.0-11.0) K/uL RBC 5.35 (4.30-5.90) M/uL Hgb 16.9 H (12.0-16.0) g/dL Hct 47.1 H (36.0-46.0) % MCV 88.0 (80.0-98.0) fL MCH 31.6 (27.0-32.0) pg MCHC 35.9 (31.0-37.0) g/dL RDW Std Deviation 40.3 (28.0-62.0) fl RDW Coeff of Jordi 13 (11.0-15.0) % Plt Count 258 (150-400) K/uL MPV 14.70 H (7.40-12.00) fL Neut % (Auto) 52.7 (48.0-80.0) % Lymph % (Auto) 36.2 (16.0-40.0) % [place] % (Auto) 9.8 (0.0-15.0) % Eos % (Auto) 0.8 (0.0-7.0) % Baso % (Auto) 0.5 (0.0-1.5) % Neut # (Auto) 9.0 H (1.4-5.7) K/uL Lymph # (Auto) 6.2 H (0.6-2.4) K/uL [place] # (Auto) 1.7 H (0.0-0.8) K/uL Eos # (Auto) 0.1 (0.0-0.7) K/uL Baso # (Auto) 0.1 (0.0-0.1) K/uL Nucleated RBC % 0.0 /100WBC Nucleated RBCs # 0 K/uL Sodium 137 (136-145) mmol/L Potassium 3.3 L (3.5-5.1) mmol/L Chloride 96 L (98-107) mmol/L Carbon Dioxide 29.0 (21.0-32.0) mmol/L BUN 20 H (7.0-18.0) mg/dL Creatinine 1.2 H (0.6-1.0) mg/dL Est Cr Clr Drug Dosing TNP Estimated GFR (MDRD) 47.6 ml/min Glucose 161 H (74-106) mg/dL Calcium 10.2 H (8.5-10.1) mg/dL Total Bilirubin 1.2 H (0.2-1.0) mg/dL AST 57 H (15-37) IU/L ALT 96 H (14-63) IU/L Alkaline Phosphatase 107 (46-116) U/L Total Protein 7.9 (6.4-8.2) g/dL Albumin 4.7 (3.4-5.0) g/dL Globulin 3.2 (2.6-4.0) g/dL Albumin/Globulin Ratio 1.5 (0.9-1.6) Lipase 98 (73-393) U/L Urine Color YELLOW Urine Appearance CLEAR Urine pH 6.0 (5.0-8.0) Ur Specific Valentine <= 1.005 (1.001-1.035) Urine Protein NEGATIVE (NEGATIVE) mg/dL Urine Glucose (UA) NEGATIVE (NEGATIVE) mg/dL Urine Ketones NEGATIVE (NEGATIVE) mg/dL Urine Occult Blood TRACE-INTACT H (NEGATIVE) Urine Nitrite NEGATIVE (NEGATIVE) Urine Bilirubin NEGATIVE (NEGATIVE) Urine Urobilinogen 0.2 (<2.0) EU/dL Ur Leukocyte Esterase NEGATIVE (NEGATIVE) U Hyaline Cast (Auto) 0-2 (0-2/LPF) Urine RBC 0-2 (0-2/HPF) Urine WBC 0-1 (0-5/HPF) Ur Epithelial Cells FEW (NONE-FEW) Urine Bacteria RARE (NEGATIVE) Meds: Medications Discontinued Medications Generic Name Dose Route Start Last Admin Trade Name Freq PRN Reason Stop Dose Admin Hydromorphone HCl 1 mg 04/06/21 09:54 04/06/21 10:02 Hydromorphone 1 Mg/Ml Syringe IVPUSH 04/06/21 09:55 1 mg ONETIME ONE Administration Pantoprazole Sodium 40 mg/ 20 mls @ 420 mls/hr 04/06/21 09:30 04/06/21 09:37 Sodium Chloride IVPUSH 04/06/21 09:32 420 mls/hr ONETIME ONE Administration Sodium Chloride 1,000 mls @ 999 mls/hr 04/06/21 09:30 04/06/21 09:37 Normal Saline IV 04/06/21 10:30 999 mls/hr NOW STA Administration Iopamidol 100 ml 04/06/21 11:37 04/06/21 11:38 Iopamidol 755 Mg/Ml 500 Ml Multipack Bottle IVPUSH 04/06/21 11:38 100 ml ONETIME ONE Administration Ketorolac Tromethamine 15 mg 04/06/21 09:30 04/06/21 10:40 Ketorolac 30 Mg/Ml Sdv IVPUSH 04/06/21 09:31 Not Given ONETIME ONE Lorazepam 1 mg 04/06/21 09:30 04/06/21 10:36 Lorazepam 2 Mg/Ml Sdv IVPUSH 04/06/21 09:31 1 mg ONETIME ONE Administration Ondansetron HCl 4 mg 04/06/21 10:25 04/06/21 10:34 Ondansetron 4 Mg/2 Ml Sdv IVPUSH 04/06/21 10:26 4 mg ONETIME ONE Administration Departure - Departure Time of Disposition: 14:13 Disposition: Home, Self-Care 01 Condition: Good Clinical Impression: Gastroesophageal reflux - Discharge Information Instructions: Food Choices for Gastroesophageal Reflux Disease, Adult, Gastroesophageal Reflux Disease, Adult, [id number] Referrals: John Mccann DO [Primary Care Provider] - Forms: ED Department Discharge Additional Instructions: You need to take omeprazole or pantoprazole and these are [id number]. Take this every day, prop up the head of your bed at night, do not eat before bed, avoid spicy food and acid food. If symptoms continue you need an upper GI endoscopy. In [place] the general surgeons perform this procedure for us. [facility] - General Surgery Professional Building [address] [place] [address], [address] [place] [address] [facility] - Primary Care [address] [place] [id number] [facility] [address] [place] [id number] The following information is given to patients seen in the emergency department who are being discharged to home. This information is to outline your options for follow-up care. We provide all patients seen in our emergency department with a follow-up referral. The need for follow-up, as well as the timing and circumstances, are variable depending upon the specifics of your emergency department visit. If you don't have a primary care physician on staff, we will provide you with a referral. We always advise you to contact your personal physician following an emergency department visit to inform them of the circumstance of the visit and for follow-up with them and/or the need for any referrals to a consulting specialist. The emergency department will also refer you to a specialist when appropriate. This referral assures that you have the opportunity for follow-up care with a specialist. All of these measure are taken in an effort to provide you with optimal care, which includes your follow-up. Under all circumstances we always encourage you to contact your private physician who remains a resource for coordinating your care. When calling for follow-up care, please make the office aware that this follow-up is from your recent emergency room visit. If for any reason you are refused follow-up, please contact the [facility] Emergency Department at and asked to speak to the emergency department charge nurse. Sepsis Event Note (ED) - Focused Exam Vital Signs: Vital Signs Temp Pulse Resp BP Pulse Ox 04/06/21 09:07 36.6 C 107 H 20 179/117 H 98 - My Orders Last 24 Hours: My Active Orders 04/06/21 10:44 CTA Abd Pelv w Cont [CT] Stat - Assessment/Plan Last 24 Hours: My Active Orders 04/06/21 10:44 CTA Abd Pelv w Cont [CT] Stat
[2021-04-06] MEDS ORDERED: Ondansetron 4 MG/2 ML SDV IVPUSH ONE (10:25)
--- NOTE | 2021-04-06 10:38 | CR ---
HISTORY: Epigastric pain. TECHNIQUE: Portable frontal view the chest. COMPARISON: Chest x-ray 08/21/2020. FINDINGS: No airspace consolidation. No pleural effusion or pneumothorax. Pulmonary vasculature and cardiomediastinal silhouette are normal. IMPRESSION: No cardiopulmonary abnormality. Dictated by Angel Headley MD @ 04/06/2021 10:37:[address] Angel Headley @ Apr 06 2021 10:37AM
[2021-04-06] MEDS ORDERED: Iopamidol 755 MG/ML 500 ML Multipack Bottle IVPUSH ONE (11:37)
--- NOTE | 2021-04-06 13:07 | CT ---
INDICATION: Vomiting and abdominal pain TECHNIQUE: CT chest, abdomen and pelvis acquired with IV contrast. 100 cc Isovue 370 COMPARISON: CT scan abdomen pelvis 10/17/2019 FINDINGS: Chest: Cardiovascular structures: Heart size is normal. Thoracic aorta and main pulmonary artery are normal in caliber. Mediastinum and laure: No mass or adenopathy. Lungs: Bibasilar atelectasis. Pleura and pericardium: No effusions. Chest wall and axilla: No mass or adenopathy. Bones: Unremarkable for age. Abdomen and Pelvis: Liver: Hepatic steatosis. Spleen: Unremarkable. Pancreas: Unremarkable. Gallbladder and bile ducts: Cholecystectomy. Kidneys: Unremarkable. Adrenal glands: Unremarkable. GI tract: Unremarkable. Appendix is normal. Vascular structures: Unremarkable. Lymph nodes: Unremarkable. Miscellaneous: Unremarkable. No free air or significant free fluid. Pelvic Organs: Unremarkable. Bones: Unremarkable for age. IMPRESSION: Unremarkable CT of the chest, abdomen, and pelvis. No findings to explain the patient`s symptoms. Hepatic steatosis. Cholecystectomy. Please note that all CT scans at this facility use dose modulation, iterative reconstruction, and/or weight-based dosing when appropriate to reduce radiation dose to as low as reasonably achievable. Dictated by Richard Shabazz MD @ 04/06/2021 1:06:[address] Richard Shabazz @ Apr 06 2021 1:06PM
--- NOTE | 2021-04-09 16:20 | CT ---
INDICATION: Vomiting and abdominal pain TECHNIQUE: CT chest, abdomen and pelvis acquired with IV contrast. 100 cc Isovue 370 COMPARISON: CT scan abdomen pelvis 10/17/2019 FINDINGS: Chest: Cardiovascular structures: Heart size is normal. Thoracic aorta and main pulmonary artery are normal in caliber. Mediastinum and laure: No mass or adenopathy. Lungs: Bibasilar atelectasis. Pleura and pericardium: No effusions. Chest wall and axilla: No mass or adenopathy. Bones: Unremarkable for age. Abdomen and Pelvis: Liver: Hepatic steatosis. Spleen: Unremarkable. Pancreas: Unremarkable. Gallbladder and bile ducts: Cholecystectomy. Kidneys: Unremarkable. Adrenal glands: Unremarkable. GI tract: Unremarkable. Appendix is normal. Vascular structures: Unremarkable. Lymph nodes: Unremarkable. Miscellaneous: Unremarkable. No free air or significant free fluid. Pelvic Organs: Unremarkable. Bones: Unremarkable for age. IMPRESSION: Unremarkable CT of the chest, abdomen, and pelvis. No findings to explain the patient`s symptoms. Hepatic steatosis. Cholecystectomy. Please note that all CT scans at this facility use dose modulation, iterative reconstruction, and/or weight-based dosing when appropriate to reduce radiation dose to as low as reasonably achievable. Dictated by Richard Shabazz MD @ 04/06/2021 1:06:[address] Richard Shabazz @ Apr 06 2021 1:06PM Dictated by: Richard Shabazz MD 04/06/21 at 13 06 , 1203 T: , Doc Number: [id number] Copies To: John Mccann DO; Josué Rdz MD~ MTDD
== END 2021-04-06 14:38 | disposition home or self-care (01) ==
LOC: MW.ED 08:45
DX: K21.9 Gastro-esophageal reflux disease without esophagitis (principal); E66.9 Obesity, unspecified; Z68.33 Body mass index [BMI] 33.0-33.9, adult
CPT/HCPCS: 71045; 71275; 74174; 80053; 81001; 83690; 85025; 96374; 96375; 99284; C9113; J1170; J2060; J2405; J7030; Q9967; 99283

== ENCOUNTER 2022-05-12 13:36 | Emergency (ER) | payer BC, OTHER | END 2022-05-12 16:45 | disposition left against medical advice (07) | LOC: MW.ED 13:36 | DX: Z53.21 Procedure and treatment not carried out due to patient leaving prior to being seen by health care provider (principal) ==

== ENCOUNTER 2022-05-13 07:43 | Emergency (ER) | payer BC | END 2022-05-13 08:21 | disposition home or self-care (01) | LOC: MW.ED 07:43 | DX: Z53.21 Procedure and treatment not carried out due to patient leaving prior to being seen by health care provider (principal) | CPT/HCPCS: 10060; 99282; 99283 ==

== ENCOUNTER 2022-12-29 11:02 | Emergency (ER) | payer SELFPAY ==
[2022-12-29] MEDS ORDERED: Acetaminophen 500 MG Tab PO STA (12:08)
[2022-12-29] MEDS ORDERED: oxyCODONE 5 MG Tab PO STA (12:43)
[2022-12-29] MEDS ORDERED: cefTRIAXone 500 MG in Lidocaine 1% 1 ML IM STA (12:44)
== END 2022-12-29 13:13 | disposition home or self-care (01) ==
LOC: MW.ED 11:02
DX: N61.1 Abscess of the breast and nipple (principal); E66.9 Obesity, unspecified; Z68.45 Body mass index [BMI] 70 or greater, adult; Z98.890 Other specified postprocedural states
CPT/HCPCS: 96372; 99282; A9270; J0696; 99283; J3490

== ENCOUNTER 2023-01-05 03:54 | Day surgery (SDC) | payer SELFPAY ==
[2023-01-05] MEDS ORDERED: Sodium Chloride 0.9% 2.5 ML Syringe FLUSH PRN (04:14)
[2023-01-05] MEDS ORDERED: Sodium Chloride 0.9% 10 ML Syringe FLUSH PRN (04:14)
[2023-01-05] MEDS ORDERED: Morphine 4 MG/ML Syringe IVPUSH ONE (04:19)
[2023-01-05] MEDS ORDERED: Ondansetron 4 MG/2 ML SDV IVPUSH ONE (04:19)
[2023-01-05 04:56] LABS: CARBON DIOXIDE,CO2 21.6 mmol/L (21.0-32.0); POTASSIUM,K 4.1 mmol/L (3.5-5.1)
[2023-01-05] MEDS ORDERED: Iopamidol 755 MG/ML 500 ML Multipack Bottle IVPUSH ONE (06:19)
[2023-01-05] MEDS ORDERED: HYDROmorphone 1 MG/ML Syringe IVPUSH ONE (07:57)
[2023-01-05] MEDS ORDERED: Ketorolac 30 MG/ML SDV ONE (08:49)
[2023-01-05] MEDS ORDERED: fentaNYL 100 MCG/2 ML SDV ONE (08:49)
[2023-01-05] MEDS ORDERED: Propofol 200 MG/20 ML SDV ONE (08:49)
[2023-01-05] MEDS ORDERED: Lidocaine 2% 5 ML SDV ONE (08:49)
[2023-01-05] MEDS ORDERED: Lidocaine 2% 11 ML Jelly Filled Syringe ONE (08:49)
[2023-01-05] MEDS ORDERED: Ondansetron 4 MG/2 ML SDV ONE (08:49)
[2023-01-05] MEDS ORDERED: droPERidol 5 MG/2 ML SDV IVPUSH PRN (08:57)
[2023-01-05] MEDS ORDERED: HYDROmorphone 1 MG/ML Syringe IVPUSH PRN (08:57)
[2023-01-05] MEDS ORDERED: Morphine 2 MG/ML SYRINGE IVPUSH PRN (08:57)
[2023-01-05] MEDS ORDERED: Naloxone 0.4 MG/ML SDV IVPUSH PRN (08:57)
[2023-01-05] MEDS ORDERED: fentaNYL 50 MCG/ML SDV IVPUSH PRN (08:57)
[2023-01-05] MEDS ORDERED: Ondansetron 4 MG/2 ML SDV IVPUSH PRN (08:57)
[2023-01-05] MEDS ORDERED: Metoclopramide 10 MG/2 ML SDV IVPUSH PRN (08:57)
[2023-01-05] MEDS ORDERED: Albuterol 0.083% 2.5 MG/3 ML Neb Soln NEB PRN (08:57)
[2023-01-05] MEDS ORDERED: Bupivacaine 0.5% 30 ML SDV ONE (09:05)
[2023-01-05] MEDS ORDERED: ceFAZolin 1 GM Vial ONE (09:05)
== END 2023-01-05 12:00 | disposition home or self-care (01) ==
LOC: MW.ED 03:54 → MW.MS 13:03
PROVIDERS: ATTEND Internal Medicine
DX: N61.1 Abscess of the breast and nipple (principal); K21.9 Gastro-esophageal reflux disease without esophagitis; F41.9 Anxiety disorder, unspecified; E66.9 Obesity, unspecified; F32.A Depression, unspecified; F43.10 Post-traumatic stress disorder, unspecified; F12.90 Cannabis use, unspecified, uncomplicated; Z68.34 Body mass index [BMI] 34.0-34.9, adult
CPT/HCPCS: 19020; 36415; 71260; 76642; 80053; 83605; 85025; 87040; 87070; 87075; 87205; A9270; J0690; J1170; J1885; J2270; J2405; J2704; J3010; J3370; J3490; J7050; Q9967; 96365; 96375; 99285; 99285-25

== ENCOUNTER 2023-09-07 09:31 | Emergency (ER) | payer SELFPAY ==
[2023-09-07] MEDS ORDERED: Lidocaine 4% 1 each Patch TOP STA (09:57)
[2023-09-07] MEDS ORDERED: Ibuprofen 400 MG Tab PO ONE (09:57)
== END 2023-09-07 10:26 | disposition home or self-care (01) ==
LOC: MW.ED 09:31
DX: G56.01 Carpal tunnel syndrome, right upper limb (principal); E66.9 Obesity, unspecified; Z68.24 Body mass index [BMI] 24.0-24.9, adult
CPT/HCPCS: 99283; A9270

== ENCOUNTER 2024-02-24 06:56 | Emergency (ER) | payer BC ==
[2024-02-24] MEDS: Ondansetron 4 MG/2 ML SDV IVPUSH ONE (07:54)
[2024-02-24] MEDS: Sodium Chloride 0.9% 1,000 ML IV ONE (07:54)
[2024-02-24 08:04] LABS: BASOPHILS ABSOLUTE AUTO 0.08 K/uL (0.00-0.20); BASOPHILS PERCENT AUTO 0.7 % (0.0-1.0); EOSINOPHILS ABSOLUTE AUTO 0.18 K/uL (0.00-0.45); EOSINOPHILS PERCENT AUTO 1.5 % (0.0-6.0); HEMATOCRIT 44.4 % (37.0-47.0); HEMOGLOBIN 15.5 g/dL (12.0-16.0); IMMATURE GRAN ABSOLUTE AUTO 0.03 K/uL (0.00-0.05); IMMATURE GRAN PERCENT AUTO 0.2 % (0.0-0.4); LYMPHOCYTES ABSOLUTE AUTO 2.38 K/uL (1.00-4.80); LYMPHOCYTES PERCENT AUTO 19.7 % (24.0-44.0); MEAN CORPUSCULAR HEMOGLOBIN 31.1 pg (28.0-32.0); MEAN CORPUSCULAR HGB CONC 34.9 g/dL (32.0-36.0); MEAN CORPUSCULAR VOLUME 89.2 fL (83.0-99.0); MEAN PLATELET VOLUME 12.8 fL (9.4-12.3); MONOCYTES ABSOLUTE AUTO 0.74 K/uL (0.00-0.80); MONOCYTES PERCENT AUTO 6.1 % (0.0-8.0); NEUTROPHILS ABSOLUTE AUTO 8.66 K/uL (1.80-7.70); NEUTROPHILS PERCENT AUTO 71.8 % (41.0-71.0); PLATELET COUNT,PLT 202 K/uL (150-400); RED BLOOD CELL COUNT 4.98 M/uL (4.10-5.30); WHITE BLOOD CELL COUNT,WBC 12.07 K/uL (3.9-11.3)
[2024-02-24] MEDS: Ketorolac 30 MG/ML SDV IVPUSH ONE (08:07)
[2024-02-24 08:25] LABS: A/G RATIO 1.1 (0.9-1.6); ALBUMIN 3.9 g/dL (3.4-5.0); BILIRUBIN TOTAL 0.8 mg/dL (0.2-1.0); CALCIUM 9.2 mg/dL (8.5-10.1); CARBON DIOXIDE,CO2 26.2 mmol/L (21.0-32.0); CREATININE 0.9 mg/dL (0.6-1.0); EST CRCL DRUG DOSING (CG) 68.45 mL/min; POTASSIUM,K 4.2 mmol/L (3.5-5.1); PROTEIN TOTAL,TP 7.3 g/dL (6.4-8.2)
[2024-02-24] MEDS: droPERidol 5 MG/2 ML SDV IVPUSH ONE (08:57)
== END 2024-02-24 09:44 | disposition home or self-care (01) ==
LOC: MW.ED 06:56
DX: R11.2 Nausea with vomiting, unspecified (principal); R19.7 Diarrhea, unspecified; E66.9 Obesity, unspecified; Z79.899 Other long term (current) drug therapy; Z75.8 Other problems related to medical facilities and other health care; Z68.34 Body mass index [BMI] 34.0-34.9, adult
CPT/HCPCS: 36415; 80053; 85025; 96361; 96374; 96375; 99284; J1790; J1885; J2405; J7030

== ENCOUNTER 2024-11-28 18:53 | Emergency (ER) | payer BC ==
[2024-11-28] MEDS: methylPREDNISolone Sodium Succinate 125 MG/2 ML SDV IVPUSH ONE (19:21)
[2024-11-28] MEDS: Benzonatate 100 MG Cap PO ONE (19:21)
[2024-11-28 19:26] LABS: BASOPHILS ABSOLUTE AUTO 0.04 K/uL (0.00-0.20); BASOPHILS PERCENT AUTO 0.4 % (0.0-1.0); EOSINOPHILS ABSOLUTE AUTO 0.28 K/uL (0.00-0.45); HEMATOCRIT 44.6 % (37.0-47.0); HEMOGLOBIN 15.6 g/dL (12.0-16.0); IMMATURE GRAN ABSOLUTE AUTO 0.02 K/uL (0.00-0.05); IMMATURE GRAN PERCENT AUTO 0.2 % (0.0-0.4); LYMPHOCYTES PERCENT AUTO 21.3 % (24.0-44.0); MEAN CORPUSCULAR HEMOGLOBIN 30.3 pg (28.0-32.0); MEAN CORPUSCULAR VOLUME 86.6 fL (83.0-99.0); MEAN PLATELET VOLUME 13.4 fL (9.4-12.3); MONOCYTES ABSOLUTE AUTO 1.09 K/uL (0.00-0.80); MONOCYTES PERCENT AUTO 11.6 % (0.0-8.0); NEUTROPHILS ABSOLUTE AUTO 5.96 K/uL (1.80-7.70); NEUTROPHILS PERCENT AUTO 63.5 % (41.0-71.0); PLATELET COUNT,PLT 136 K/uL (150-400); RED BLOOD CELL COUNT 5.15 M/uL (4.10-5.30); WHITE BLOOD CELL COUNT,WBC 9.39 K/uL (3.9-11.3)
[2024-11-28 19:48] LABS: LACTIC ACID 1.1 mmol/L (0.4-2.0)
[2024-11-28 19:51] LABS: A/G RATIO 1.1 (0.9-1.6); ALBUMIN 3.7 g/dL (3.4-5.0); BILIRUBIN TOTAL 0.7 mg/dL (0.2-1.0); CALCIUM 8.8 mg/dL (8.5-10.1); CARBON DIOXIDE,CO2 21.3 mmol/L (21.0-32.0); CREATININE 0.9 mg/dL (0.6-1.0); EST CRCL DRUG DOSING (CG) 70.3 mL/min; MAGNESIUM 2.1 mg/dL (1.8-2.4); POTASSIUM,K 3.6 mmol/L (3.5-5.1)
[2024-11-28] MEDS: Albuterol/Ipratropium 3.0-0.5 MG/3 ML Neb Soln NEB ONE (20:45)
[2024-11-28 20:47] LABS: BILIRUBIN,URINE NEGATIVE (NEGATIVE); COLOR,URINE YELLOW; GLUCOSE,URINE NEGATIVE (NEGATIVE); KETONES,URINE 15 mg/dL (NEGATIVE); LEUKOCYTE ESTERASE,URINE NEGATIVE (NEGATIVE); NITRITE,URINE POSITIVE (NEGATIVE); OCCULT BLOOD,URINE NEGATIVE (NEGATIVE); PH,URINE 5.5 (5.0-8.0); PROTEIN,URINE NEGATIVE (NEGATIVE); UROBILINOGEN,URINE 0.2 EU/dL (<2.0)
[2024-11-28 20:56] LABS: APPEARANCE,URINE HAZY
[2024-11-28 20:59] LABS: AMORPHOUS SEDIMENT,URINE FEW (NEGATIVE); BACTERIA,URINE 3+ (NEGATIVE); EPITHELIAL CELLS,URINE OCCASIONAL (NONE-FEW); RBC,URINE 0-2 (0-2/HPF)
[2024-11-28] MEDS: Albuterol 8 GM Inhaler INH ONE (22:15)
[2024-11-28] MEDS: Cephalexin 500 MG Cap PO ONE (22:23)
== END 2024-11-28 22:24 | disposition home or self-care (01) ==
LOC: MW.ED 18:53
DX: J10.1 Influenza due to other identified influenza virus with other respiratory manifestations (principal); N39.0 Urinary tract infection, site not specified
CPT/HCPCS: 36415; 71046; 80053; 81001; 83605; 83735; 83880; 85025; 87086; 87428; 96374; 99285; A9270; J2919; J7620

== ENCOUNTER 2025-07-02 08:47 | Emergency (ER) | payer BC | END 2025-07-02 09:20 | disposition home or self-care (01) | LOC: MW.ED 08:47 | DX: L03.113 Cellulitis of right upper limb (principal); E66.9 Obesity, unspecified; Z68.33 Body mass index [BMI] 33.0-33.9, adult | CPT/HCPCS: 99283; A9270 ==